=== PATIENT | female | born 1940 | race African-American/Black ===

== ENCOUNTER → 2016-11-01 | Outpatient (CLI) | payer MEDICARE ==
[~2016-11-01] MED LIST: ASPI325T4 PO; ATEN100T PO; CALC200T3 PO; CHOL100018 PO; FEBU40TA PO; HYDR-3240 PO; HYDR500C3 PO; LEVO100T5 PO; OMNIPAQUE 350 MG/ML, 100ML BOTTLE ONE; OXYC1TAB7 PO; PREG25CA PO; TIZA2TAB PO; TRIA1CAP PO
== END | disposition home or self-care (01) ==
LOC: CFH 09:05
PROVIDERS: ATTEND Internal Medicine Cardiovascular Disease
DX: I10 Essential (primary) hypertension (principal); N28.1 Cyst of kidney, acquired; R06.02 Shortness of breath
CPT/HCPCS: 71275; Q9967

== ENCOUNTER 2017-08-24 18:03 | Emergency (ER) | payer MEDICARE ==
[~2017-08-24] VITALS: Ht 167.6 cm; Wt 113.8 kg
[~2017-08-24 18:03] MED LIST changes: +ASPI325T17 PO; -ASPI325T4 PO; +CHOL100012 PO; -CHOL100018 PO; -OMNIPAQUE 350 MG/ML, 100ML BOTTLE ONE
[2017-08-24 18:06] VITALS: BP 125/73
[2017-08-24] MEDS ORDERED: DEXAMETHASONE 4 MG TABLET PO STA (18:51)
[2017-08-24] MEDS ORDERED: DEXAMETHASONE 4 MG TABLET ONE (18:56)
[2017-08-24] MEDS ORDERED: ALBUTEROL/IPRATROPIUM 2.5MG/0.5MG, 3 ML NPPB ONE (19:00)
[2017-08-24] MEDS ORDERED: ALBUTEROL/IPRATROPIUM 2.5MG/0.5MG, 3 ML ONE (19:15)
[2017-08-24] MEDS ORDERED: DEXAMETHASONE 4 MG TABLET PO ONE (19:30)
== END 2017-08-24 19:46 | disposition home or self-care (01) ==
LOC: ED 19:00
DX: J44.0 Chronic obstructive pulmonary disease with (acute) lower respiratory infection (principal); J20.9 Acute bronchitis, unspecified; J02.8 Acute pharyngitis due to other specified organisms; F17.200 Nicotine dependence, unspecified, uncomplicated
CPT/HCPCS: 71046; 87081; 87880; 94640; 99285; J7620

== ENCOUNTER → 2017-09-17 | Outpatient (CLI) | payer MEDICARE | END | disposition home or self-care (01) | LOC: CVU 09:14 | PROVIDERS: ATTEND Internal Medicine Cardiovascular Disease | DX: I08.3 Combined rheumatic disorders of mitral, aortic and tricuspid valves (principal); I10 Essential (primary) hypertension; J44.9 Chronic obstructive pulmonary disease, unspecified; Z87.891 Personal history of nicotine dependence | CPT/HCPCS: 93306 ==

== ENCOUNTER → 2017-10-23 | Outpatient (CLI) | payer MEDICARE ==
[~2017-10-23] MED LIST changes: +REGADENOSON 0.4 MG/5 ML SYRINGE ONE
== END | disposition home or self-care (01) ==
LOC: CFH 07:54
PROVIDERS: ATTEND Internal Medicine Cardiovascular Disease
DX: I25.10 Atherosclerotic heart disease of native coronary artery without angina pectoris (principal); I44.4 Left anterior fascicular block; I25.2 Old myocardial infarction
CPT/HCPCS: 78452; 93017; A9502; J2785

== ENCOUNTER 2018-03-31 10:24 | Inpatient (IN) | payer MEDICARE ==
[~2018-03-31] VITALS: Ht 167.6 cm; Wt 123.4 kg
[~2018-03-31 10:24] MED LIST changes: -REGADENOSON 0.4 MG/5 ML SYRINGE ONE
[2018-03-31] MEDS ORDERED: SODIUM CHLORIDE FLUSH 10ML SYR IVF ONE (11:30)
[2018-03-31] MEDS ORDERED: ALBUTEROL/IPRATROPIUM 2.5MG/0.5MG, 3 ML NPPB ONE (11:30)
[2018-03-31 12:11] LABS: INTERNATIONAL NORMALIZED RATIO 1.37 (0.93-1.1)
[2018-03-31 12:31] LABS: ALBUMIN 2.5 g/dL (3.4-5.0); ANION GAP 10 mmol/L (5-15); CALCIUM 7.5 mg/dL (8.5-10.1); CHLORIDE 96 mmol/L (98-107)
[2018-03-31 12:36] LABS: MEAN CORPUSCULAR HEMOGLOBIN 38.1 pg (27.0-34.8); MEAN CORPUSCULAR HGB CONC 31.9 g/dL (32.4-35.8); MEAN CORPUSCULAR VOLUME 119.5 fL (80-100); MEAN PLATELET VOLUME 7.3 fL (7.4-10.4); PLATELET COUNT 213 x10^3/uL (130-400); RED BLOOD COUNT 2.11 x10^6/uL (3.82-5.3); RED CELL DISTRIBUTION WIDTH 17.9 % (9.6-15.2)
[2018-03-31 12:36] LABS: ALANINE AMINOTRANSFERASE 133 U/L (12-78); ALKALINE PHOSPHATASE 241 U/L (45-117); BILIRUBIN,TOTAL 0.8 mg/dL (0.2-1.0); CREATININE 2.31 mg/dL (0.55-1.02); TOTAL PROTEIN 6.7 g/dL (6.4-8.2); TROPONIN I 0.047 ng/mL (0.000-0.045)
[2018-03-31 12:37] LABS: MD YES
[2018-03-31 12:43] LABS: LYMPH#(MANUAL) 4.48 x10^3/uL (1-3.4); LYMPHS% (MANUAL) 35 % (22-44); METAMYELOCYTES# (MANUAL) 0.13 x10^3/uL (0-0); METAMYELOCYTES% (MANUAL) 1 % (0-1); MONOS% (MANUAL) 18 % (2-9); SEG#(MANUAL) 1.15 x10^3/uL (1.8-6.8); SEGS% (MANUAL) 9 % (42-75)
[2018-03-31 12:45] LABS: NRBC % (MANUAL) 7 % (0-1); OTHER CELLS # (MANUAL) 4.74 x10^3/uL (0-0); OTHER CELLS % (MANUAL) 37 % (0-0)
[2018-03-31 12:47] LABS: ANISOCYTOSIS 1+
[2018-03-31 12:48] LABS: POLYCHROMASIA 1+
[2018-03-31 12:49] LABS: <PLATELET ESTIMATE> ADEQUATE; MICROCYTOSIS 1+
[2018-03-31 13:05] LABS: LARGE PLATELETS 1+
[2018-03-31 13:09] LABS: SCHISTOCYTES 1+
[2018-03-31 13:10] LABS: STOMATOCYTES 1+
[2018-03-31] MEDS: NICOTINE 7 MG/24 HR PATCH.TD24 TD SCH (16:00)
[2018-03-31] MEDS ORDERED: ENALAPRILAT 1.25 MG/ML, 2ML IVPush PRN (16:00)
[2018-03-31] MEDS ORDERED: FUROSEMIDE 20 MG/2 ML IV ONE (16:14)
[2018-03-31] MEDS ORDERED: ALBUTEROL SULFATE 2.5 MG/3 ML NPPB PRN (17:00)
[2018-03-31 17:03] VITALS: BP 132/60
[2018-03-31 17:55] LABS: TROPONIN I 0.053 ng/mL (0.000-0.045)
[2018-03-31] MEDS: ACETAMINOPHEN 325 MG TABLET PO PRN (18:43)
[2018-03-31 18:49] VITALS: BP 118/64
[2018-03-31 18:54] VITALS: BP 107/66
[2018-03-31 19:00] VITALS: BP 126/79
[2018-03-31] MEDS: ALBUTEROL SULFATE 2.5 MG/3 ML NPPB SCH ×2 (19:05→21:00)
[2018-03-31 22:40] LABS: TROPONIN I 0.063 ng/mL (0.000-0.045)
[2018-04-01 04:15] VITALS: BP 106/65
[2018-04-01] MEDS: ALBUTEROL SULFATE 2.5 MG/3 ML NPPB SCH ×4 (04:31→20:07)
[2018-04-01 05:33] LABS: ALANINE AMINOTRANSFERASE 109 U/L (12-78); ALBUMIN 2.2 g/dL (3.4-5.0); ANION GAP 6 mmol/L (5-15); CALCIUM 7.6 mg/dL (8.5-10.1); CHLORIDE 98 mmol/L (98-107)
[2018-04-01 05:34] LABS: MEAN CORPUSCULAR HEMOGLOBIN 39.5 pg (27.0-34.8); MEAN CORPUSCULAR HGB CONC 32.7 g/dL (32.4-35.8); MEAN CORPUSCULAR VOLUME 120.8 fL (80-100); MEAN PLATELET VOLUME 7.2 fL (7.4-10.4); PLATELET COUNT 191 x10^3/uL (130-400); RED BLOOD COUNT 2.02 x10^6/uL (3.82-5.3); RED CELL DISTRIBUTION WIDTH 17.6 % (9.6-15.2)
[2018-04-01 05:35] LABS: ALKALINE PHOSPHATASE 222 U/L (45-117); BILIRUBIN,TOTAL 0.7 mg/dL (0.2-1.0); TOTAL PROTEIN 6.1 g/dL (6.4-8.2)
[2018-04-01 05:53] LABS: MD YES
[2018-04-01 05:58] LABS: LYMPH#(MANUAL) 6.07 x10^3/uL (1-3.4); LYMPHS% (MANUAL) 46 % (22-44); MONOS#(MANUAL) 1.06 x10^3/uL (0.3-2.7); MONOS% (MANUAL) 8 % (2-9); SEG#(MANUAL) 1.32 x10^3/uL (1.8-6.8); SEGS% (MANUAL) 10 % (42-75)
[2018-04-01 05:59] LABS: <PLATELET ESTIMATE> ADEQUATE; ANISOCYTOSIS 1+; LARGE PLATELETS 1+; NRBC % (MANUAL) 16 % (0-1); OTHER CELLS # (MANUAL) 4.75 x10^3/uL (0-0); OTHER CELLS % (MANUAL) 36 % (0-0); POLYCHROMASIA 1+
[2018-04-01 06:02] LABS: SMUDGE CELLS 1+
[2018-04-01] MEDS ORDERED: POTASSIUM CHLORIDE 20 MEQ TAB.ER.PRT PO ONE (07:00)
[2018-04-01 07:28] VITALS: BP 108/60
[2018-04-01] MEDS ORDERED: FUROSEMIDE 20 MG/2 ML IV SCH (09:00)
[2018-04-01] MEDS: POTASSIUM CHLORIDE 20 MEQ TAB.ER.PRT PO SCH (09:01)
[2018-04-01] MEDS: FEBUXOSTAT 40 MG TABLET PO SCH (09:01)
[2018-04-01] MEDS: LEVOTHYROXINE 100 MCG TABLET PO SCH (09:02)
[2018-04-01] MEDS: CHOLECALCIFEROL 1,000 UNIT TABLET PO SCH (09:02)
[2018-04-01 12:41] VITALS: BP 116/71
[2018-04-01 14:23] LABS: OCCULT BLOOD POSITIVE (NEGATIVE)
[2018-04-01 14:24] LABS: FOLATE LEVEL 5.7 ng/mL (3.1-17.5); THYROID STIMULATING HORMONE 0.767 mIU/L (0.358-3.740)
[2018-04-01 14:26] LABS: MD YES; MEAN CORPUSCULAR HEMOGLOBIN 39.6 pg (27.0-34.8); MEAN CORPUSCULAR HGB CONC 32.8 g/dL (32.4-35.8); MEAN CORPUSCULAR VOLUME 120.4 fL (80-100); MEAN PLATELET VOLUME 6.6 fL (7.4-10.4); PLATELET COUNT 180 x10^3/uL (130-400); RED BLOOD COUNT 2.05 x10^6/uL (3.82-5.3); RED CELL DISTRIBUTION WIDTH 17.6 % (9.6-15.2)
[2018-04-01 15:23] LABS: ANISOCYTOSIS 1+; BAND#(MANUAL) 0.14 x10^3/uL; BANDS%(MANUAL) 1 % (0-7); BASOS#(MANUAL) 0.14 x10^3/uL (0-0.1); BASOS% (MANUAL) 1 % (0-1); LYMPHS% (MANUAL) 21 % (22-44); METAMYELOCYTES# (MANUAL) 0.28 x10^3/uL (0-0); METAMYELOCYTES% (MANUAL) 2 % (0-1); MONOS% (MANUAL) 8 % (2-9); NRBC % (MANUAL) 30 % (0-1); OTHER CELLS # (MANUAL) 8.28 x10^3/uL (0-0); OTHER CELLS % (MANUAL) 60 % (0-0); POLYCHROMASIA 1+; SEG#(MANUAL) 0.97 x10^3/uL (1.8-6.8); SEGS% (MANUAL) 7 % (42-75)
[2018-04-01 15:24] LABS: BASOPHILLIC STIPPLING 1+; OVALOCYTES 1+
[2018-04-01 15:25] LABS: <PLATELET ESTIMATE> ADEQUATE
[2018-04-01 15:26] LABS: LARGE PLATELETS 1+
[2018-04-01] MEDS: NICOTINE 7 MG/24 HR PATCH.TD24 TD SCH (16:00)
[2018-04-01 19:58] VITALS: BP 116/70
[2018-04-01 21:00] VITALS: BP 114/66
[2018-04-01] MEDS: ACETAMINOPHEN 325 MG TABLET PO PRN (21:11)
[2018-04-01 22:09] LABS: ALANINE AMINOTRANSFERASE 87 U/L (12-78); ALBUMIN 2.3 g/dL (3.4-5.0); ANION GAP 8 mmol/L (5-15); CALCIUM 7.6 mg/dL (8.5-10.1); CHLORIDE 98 mmol/L (98-107); CREATININE 2.11 mg/dL (0.55-1.02)
[2018-04-01 22:11] LABS: ALKALINE PHOSPHATASE 202 U/L (45-117); BILIRUBIN,TOTAL 0.8 mg/dL (0.2-1.0); TOTAL PROTEIN 6.1 g/dL (6.4-8.2)
[2018-04-02 02:00] VITALS: BP 108/69
[2018-04-02] MEDS ORDERED: POTASSIUM CHLORIDE 20 MEQ TAB.ER.PRT PO ONE (06:00)
[2018-04-02 07:00] VITALS: BP 115/73
[2018-04-02] MEDS: ALBUTEROL SULFATE 2.5 MG/3 ML NPPB SCH ×3 (07:50→21:28)
[2018-04-02] MEDS: POTASSIUM CHLORIDE 20 MEQ TAB.ER.PRT PO SCH (08:00)
[2018-04-02] MEDS: FEBUXOSTAT 40 MG TABLET PO SCH (08:52)
[2018-04-02] MEDS: LEVOTHYROXINE 100 MCG TABLET PO SCH (08:52)
[2018-04-02] MEDS: CHOLECALCIFEROL 1,000 UNIT TABLET PO SCH (08:52)
[2018-04-02 12:33] VITALS: BP 130/77
[2018-04-02] MEDS: ENOXAPARIN 30 MG/0.3 ML SQ SCH (13:06)
[2018-04-02] MEDS: NICOTINE 7 MG/24 HR PATCH.TD24 TD SCH (16:00)
[2018-04-02 17:23] LABS: ANION GAP 6 mmol/L (5-15); CALCIUM 8.3 mg/dL (8.5-10.1); CHLORIDE 101 mmol/L (98-107); CREATININE 1.72 mg/dL (0.55-1.02)
[2018-04-02 17:46] LABS: MD YES
[2018-04-02 17:47] LABS: MEAN CORPUSCULAR HEMOGLOBIN 39.1 pg (27.0-34.8); MEAN CORPUSCULAR HGB CONC 32.8 g/dL (32.4-35.8); MEAN CORPUSCULAR VOLUME 119.2 fL (80-100); MEAN PLATELET VOLUME 7.4 fL (7.4-10.4); PLATELET COUNT 119 x10^3/uL (130-400); RED BLOOD COUNT 1.93 x10^6/uL (3.82-5.3)
[2018-04-02 17:54] LABS: RED CELL DISTRIBUTION WIDTH 18.3 % (9.6-15.2)
[2018-04-02 18:00] LABS: BANDS%(MANUAL) 2 % (0-7); LYMPH#(MANUAL) 4.85 x10^3/uL (1-3.4); LYMPHS% (MANUAL) 24 % (22-44); MONOS#(MANUAL) 1.82 x10^3/uL (0.3-2.7); MONOS% (MANUAL) 9 % (2-9); NRBC % (MANUAL) 9 % (0-1); OTHER CELLS # (MANUAL) 10.91 x10^3/uL (0-0); OTHER CELLS % (MANUAL) 54 % (0-0); SEG#(MANUAL) 2.22 x10^3/uL (1.8-6.8); SEGS% (MANUAL) 11 % (42-75)
[2018-04-02 18:01] LABS: <PLATELET ESTIMATE> ADEQUATE; ANISOCYTOSIS 1+; LARGE PLATELETS 1+; POLYCHROMASIA 1+
[2018-04-02 19:51] VITALS: BP 148/78
[2018-04-03] VITALS (10 sets, daily range): BP systolic 95–142; BP diastolic 47–82
[2018-04-03] MEDS ORDERED: POTASSIUM CHLORIDE 40 MEQ in SODIUM CHLORIDE 0.9% 500 ML IV ONE ×2 (08:00→17:00)
[2018-04-03] MEDS: FLUTICASONE/VILANTEROL 200-25MCG/INH INH SCH (09:00)
[2018-04-03] MEDS: FEBUXOSTAT 40 MG TABLET PO SCH (09:10)
[2018-04-03] MEDS: CHOLECALCIFEROL 1,000 UNIT TABLET PO SCH (09:10)
[2018-04-03] MEDS: LEVOTHYROXINE 100 MCG TABLET PO SCH (09:10)
[2018-04-03] MEDS: ALBUTEROL SULFATE 2.5 MG/3 ML NPPB SCH ×3 (09:17→20:03)
[2018-04-03 11:01] LABS: MICROSCOPIC INDICATED
[2018-04-03 11:57] LABS: CULTURE INDICATED? YES
[2018-04-03] MEDS: ENOXAPARIN 30 MG/0.3 ML SQ SCH (13:57)
[2018-04-03] MEDS: NICOTINE 7 MG/24 HR PATCH.TD24 TD SCH (19:47)
[2018-04-04 02:04] VITALS: BP 144/77
[2018-04-04 05:14] LABS: ANION GAP 6 mmol/L (5-15); CALCIUM 8.2 mg/dL (8.5-10.1); CHLORIDE 106 mmol/L (98-107); CREATININE 1.29 mg/dL (0.55-1.02)
[2018-04-04 06:45] LABS: MD YES; MEAN CORPUSCULAR HEMOGLOBIN 35.7 pg (27.0-34.8); MEAN CORPUSCULAR HGB CONC 33.1 g/dL (32.4-35.8); MEAN CORPUSCULAR VOLUME 107.9 fL (80-100); MEAN PLATELET VOLUME 8.6 fL (7.4-10.4); PLATELET COUNT 82 x10^3/uL (130-400); RED BLOOD COUNT 2.53 x10^6/uL (3.82-5.3); RED CELL DISTRIBUTION WIDTH 29.1 % (9.6-15.2)
[2018-04-04 06:50] LABS: LYMPH#(MANUAL) 6.72 x10^3/uL (1-3.4); LYMPHS% (MANUAL) 28 % (22-44); NRBC % (MANUAL) 8 % (0-1); SEG#(MANUAL) 0.96 x10^3/uL (1.8-6.8); SEGS% (MANUAL) 4 % (42-75)
[2018-04-04 06:52] LABS: OTHER CELLS % (MANUAL) 68 % (0-0)
[2018-04-04 06:53] LABS: ANISOCYTOSIS 2+
[2018-04-04 07:00] LABS: <PLATELET ESTIMATE> DECREASED; OVALOCYTES 1+
[2018-04-04 07:01] LABS: <PLT MORPHOLOGY> NORMAL PLT MORPH; LARGE PLATELETS 1+
[2018-04-04 07:43] VITALS: BP 153/82
[2018-04-04 08:20] LABS: ABSOLUTE RETICS # 0.034 x10^6/uL (0.5-2.5); RETICULOCYTE COUNT % 1.33 % (0.5-1.5)
[2018-04-04 08:24] LABS: PLATELET (DIC) 83 x10^3/uL (130-400)
[2018-04-04 08:25] LABS: RED BLOOD COUNT 2.52 x10^6/uL (3.82-5.3)
[2018-04-04 08:37] LABS: FIBRINOGEN 166 mg/dL (200-340); PROTIME 11.9 Seconds (9.6-11.5); PTT 30 Seconds (25-31)
[2018-04-04 08:48] LABS: D-DIMER (DIC) > 35.20 ug/mlFEU (0.00-0.52)
[2018-04-04] MEDS: LEVOTHYROXINE 100 MCG TABLET PO SCH (09:14)
[2018-04-04] MEDS: FEBUXOSTAT 40 MG TABLET PO SCH (09:14)
[2018-04-04] MEDS: CHOLECALCIFEROL 1,000 UNIT TABLET PO SCH (09:14)
[2018-04-04] MEDS: FLUTICASONE/VILANTEROL 200-25MCG/INH INH SCH (09:30)
[2018-04-04] MEDS ORDERED: LIDOCAINE-MPF 2%, 2ML ONE (10:15)
[2018-04-04] MEDS ORDERED: FENTANYL PF 100 MCG/2ML ONE (10:16)
[2018-04-04] MEDS ORDERED: FLUMAZENIL 0.1 MG/1 ML, 5ML ONE (10:17)
[2018-04-04] MEDS ORDERED: NALOXONE 1 MG/ML, 2ML ONE (10:17)
[2018-04-04] MEDS ORDERED: MIDAZOLAM 1 MG/ML, 5ML ONE (10:17)
[2018-04-04 12:54] VITALS: BP 159/84
[2018-04-04] MEDS: NICOTINE 7 MG/24 HR PATCH.TD24 TD SCH (16:00)
[2018-04-04 16:30] LABS: PLATELET (DIC) 83 x10^3/uL (130-400)
[2018-04-04 16:57] LABS: FIBRINOGEN 181 mg/dL (200-340); PTT 29 Seconds (25-31)
[2018-04-04 16:59] LABS: D-DIMER (DIC) > 35.20 ug/mlFEU (0.00-0.52)
[2018-04-04 19:31] VITALS: BP 135/78
[2018-04-05 00:03] VITALS: BP 147/84
[2018-04-05 07:19] VITALS: BP 126/79
[2018-04-05] MEDS: FEBUXOSTAT 40 MG TABLET PO SCH (08:29)
[2018-04-05] MEDS: CHOLECALCIFEROL 1,000 UNIT TABLET PO SCH (08:29)
[2018-04-05] MEDS: LEVOTHYROXINE 100 MCG TABLET PO SCH (08:30)
[2018-04-05] MEDS: FLUTICASONE/VILANTEROL 200-25MCG/INH INH SCH (08:31)
[2018-04-05 08:52] LABS: ANION GAP 5 mmol/L (5-15); CALCIUM 8.5 mg/dL (8.5-10.1); CHLORIDE 107 mmol/L (98-107)
[2018-04-05] MEDS ORDERED: COLCHICINE 0.6 MG TABLET PO SCH ×2 (09:00)
[2018-04-05] MEDS ORDERED: LIDOCAINE-MPF 2%, 2ML ONE (10:41)
[2018-04-05 13:56] VITALS: BP 130/84
[2018-04-05 15:26] LABS: ALBUMIN 2.2 g/dL (3.4-5.0); ANION GAP 6 mmol/L (5-15); CALCIUM 8.3 mg/dL (8.5-10.1); CHLORIDE 107 mmol/L (98-107)
[2018-04-05 15:32] LABS: MEAN CORPUSCULAR HEMOGLOBIN 34.3 pg (27.0-34.8); MEAN CORPUSCULAR HGB CONC 32.1 g/dL (32.4-35.8); MEAN CORPUSCULAR VOLUME 106.9 fL (80-100); MEAN PLATELET VOLUME 8.4 fL (7.4-10.4); PLATELET COUNT 80 x10^3/uL (130-400); RED BLOOD COUNT 2.39 x10^6/uL (3.82-5.3)
[2018-04-05 15:37] LABS: ALANINE AMINOTRANSFERASE 37 U/L (12-78); ALKALINE PHOSPHATASE 135 U/L (45-117); BILIRUBIN,TOTAL 0.4 mg/dL (0.2-1.0); TOTAL PROTEIN 6.2 g/dL (6.4-8.2)
[2018-04-05 16:39] LABS: MD YES
[2018-04-05 16:46] LABS: LYMPH#(MANUAL) 3.27 x10^3/uL (1-3.4); LYMPHS% (MANUAL) 15 % (22-44); MONOS#(MANUAL) 0.44 x10^3/uL (0.3-2.7); MONOS% (MANUAL) 2 % (2-9); SEG#(MANUAL) 1.74 x10^3/uL (1.8-6.8); SEGS% (MANUAL) 8 % (42-75)
[2018-04-05 16:47] LABS: NRBC % (MANUAL) 6 % (0-1); OTHER CELLS # (MANUAL) 16.35 x10^3/uL (0-0)
[2018-04-05 16:48] LABS: <PLATELET ESTIMATE> DECREASED; ANISOCYTOSIS 2+; LARGE PLATELETS 1+
[2018-04-05 16:49] LABS: HEMOGRAM NOTE RECHECKED; RED CELL DISTRIBUTION WIDTH 28.3 % (9.6-15.2)
[2018-04-05 16:52] LABS: OTHER CELLS % (MANUAL) 75 % (0-0)
[2018-04-05] MEDS: NICOTINE 7 MG/24 HR PATCH.TD24 TD SCH (17:04)
[2018-04-05 18:47] VITALS: BP 166/84
[2018-04-06 00:28] VITALS: BP 136/72
[2018-04-06 06:14] LABS: ALBUMIN 2.3 g/dL (3.4-5.0); ANION GAP 4 mmol/L (5-15); CALCIUM 7.7 mg/dL (8.5-10.1); CHLORIDE 107 mmol/L (98-107)
[2018-04-06 06:18] LABS: ALANINE AMINOTRANSFERASE 37 U/L (12-78); ALKALINE PHOSPHATASE 129 U/L (45-117); BILIRUBIN,TOTAL 0.6 mg/dL (0.2-1.0); CREATININE 1.13 mg/dL (0.55-1.02); TOTAL PROTEIN 6.2 g/dL (6.4-8.2)
[2018-04-06 06:23] LABS: MEAN CORPUSCULAR HEMOGLOBIN 35.4 pg (27.0-34.8); MEAN CORPUSCULAR VOLUME 107.1 fL (80-100); MEAN PLATELET VOLUME 8.7 fL (7.4-10.4); PLATELET COUNT 86 x10^3/uL (130-400); RED BLOOD COUNT 2.32 x10^6/uL (3.82-5.3); RED CELL DISTRIBUTION WIDTH 27.9 % (9.6-15.2)
[2018-04-06 06:53] VITALS: BP 146/67
[2018-04-06 07:46] LABS: MD YES
[2018-04-06 07:52] LABS: EOS#(MANUAL) 0.24 x10^3/uL (0.0-0.4); EOS% (MANUAL) 1 % (1-7); LYMPH#(MANUAL) 4.74 x10^3/uL (1-3.4); LYMPHS% (MANUAL) 20 % (22-44); MONOS#(MANUAL) 0.24 x10^3/uL (0.3-2.7); MONOS% (MANUAL) 1 % (2-9); NRBC % (MANUAL) 8 % (0-1); OTHER CELLS # (MANUAL) 18.25 x10^3/uL (0-0); REACTIVE LYMPHS # (MANUAL) 0.24 x10^3/uL (0-0); REACTIVE LYMPHS % (MANUAL) 1 % (0-0)
[2018-04-06 07:53] LABS: OTHER CELLS % (MANUAL) 77 % (0-0)
[2018-04-06 07:54] LABS: ANISOCYTOSIS 2+; POLYCHROMASIA 1+
[2018-04-06 07:55] LABS: <PLATELET ESTIMATE> DECREASED; <PLT MORPHOLOGY> NORMAL PLT MORPH
[2018-04-06] MEDS: CHOLECALCIFEROL 1,000 UNIT TABLET PO SCH (11:51)
[2018-04-06] MEDS: ALLOPURINOL 100 MG TABLET PO SCH (11:51)
[2018-04-06] MEDS: LEVOTHYROXINE 100 MCG TABLET PO SCH (11:52)
[2018-04-06 13:32] VITALS: BP 157/93
[2018-04-06] MEDS: NICOTINE 7 MG/24 HR PATCH.TD24 TD SCH (13:47)
[2018-04-06] MEDS: FLUTICASONE/VILANTEROL 200-25MCG/INH INH SCH (14:27)
[2018-04-06] MEDS ORDERED: FUROSEMIDE 20 MG/2 ML IV ONE (14:30)
[2018-04-06] MEDS: CEPHALEXIN 250 MG/5 ML, ORAL SUSP PO SCH ×2 (17:22→21:14)
[2018-04-06 19:45] VITALS: BP 144/79
[2018-04-07 02:50] VITALS: BP 142/77
[2018-04-07] MEDS: CEPHALEXIN 250 MG/5 ML, ORAL SUSP PO SCH ×4 (05:38→20:14)
[2018-04-07 06:22] LABS: CHLORIDE 105 mmol/L (98-107)
[2018-04-07 06:23] LABS: MEAN CORPUSCULAR HEMOGLOBIN 35.6 pg (27.0-34.8); MEAN CORPUSCULAR HGB CONC 33.2 g/dL (32.4-35.8); MEAN CORPUSCULAR VOLUME 107.1 fL (80-100); MEAN PLATELET VOLUME 8.4 fL (7.4-10.4); PLATELET COUNT 71 x10^3/uL (130-400); RED BLOOD COUNT 2.23 x10^6/uL (3.82-5.3); RED CELL DISTRIBUTION WIDTH 27.7 % (9.6-15.2)
[2018-04-07 06:38] LABS: ALANINE AMINOTRANSFERASE 35 U/L (12-78); ALBUMIN 2.4 g/dL (3.4-5.0); ALKALINE PHOSPHATASE 119 U/L (45-117); ANION GAP 7 mmol/L (5-15); BILIRUBIN,TOTAL 0.5 mg/dL (0.2-1.0); CALCIUM 8.1 mg/dL (8.5-10.1); TOTAL PROTEIN 6.1 g/dL (6.4-8.2)
[2018-04-07 07:25] LABS: MD YES
[2018-04-07 07:27] LABS: LYMPH#(MANUAL) 4.25 x10^3/uL (1-3.4); LYMPHS% (MANUAL) 17 % (22-44); MONOS% (MANUAL) 2 % (2-9); NRBC % (MANUAL) 8 % (0-1); OTHER CELLS # (MANUAL) 20.25 x10^3/uL (0-0)
[2018-04-07 07:28] LABS: ANISOCYTOSIS 2+; OTHER CELLS % (MANUAL) 81 % (0-0)
[2018-04-07 07:29] LABS: OVALOCYTES 1+; POLYCHROMASIA 1+
[2018-04-07 07:30] LABS: <PLATELET ESTIMATE> DECREASED; <PLT MORPHOLOGY> NORMAL PLT MORPH
[2018-04-07 09:02] VITALS: BP 131/69
[2018-04-07] MEDS: LEVOTHYROXINE 100 MCG TABLET PO SCH (09:23)
[2018-04-07] MEDS: CHOLECALCIFEROL 1,000 UNIT TABLET PO SCH (09:23)
[2018-04-07] MEDS: ALLOPURINOL 100 MG TABLET PO SCH (09:23)
[2018-04-07] MEDS: FLUTICASONE/VILANTEROL 200-25MCG/INH INH SCH (09:23)
[2018-04-07] MEDS ORDERED: ALBUTEROL SULFATE 2.5 MG/3 ML NPPB PRN (09:30)
[2018-04-07] MEDS: ALBUTEROL SULFATE 2.5 MG/3 ML NPPB SCH ×3 (09:53→19:06)
[2018-04-07] MEDS: FAMOTIDINE 20 MG/2 ML IVPush SCH (10:18)
[2018-04-07] MEDS: ACETAMINOPHEN 325 MG TABLET PO SCH (10:18)
[2018-04-07] MEDS ORDERED: SODIUM CHLORIDE 0.9% IVPush SCH (10:30)
[2018-04-07] MEDS ORDERED: AZACITIDINE IVPush SCH (10:30)
[2018-04-07] MEDS: ONDANSETRON 8 MG in SODIUM CHLORIDE 0.9% 50 ML IVPB SCH (10:50)
[2018-04-07] MEDS: DIPHENHYDRAMINE 50 MG/ML, 1ML IVPush SCH (10:57)
[2018-04-07 13:55] VITALS: BP 125/73
[2018-04-07] MEDS: NICOTINE 7 MG/24 HR PATCH.TD24 TD SCH (15:00)
[2018-04-07] MEDS ORDERED: ARGATROBAN/NACL 50 MG/50 ML 50 ML IV SCH ×2 (16:00→16:05)
[2018-04-07] MEDS ORDERED: FONDAPARINUX 2.5 MG/0.5 ML SQ SCH (17:00)
[2018-04-07 19:47] VITALS: BP 155/73
[2018-04-08 03:46] VITALS: BP 111/62
[2018-04-08] MEDS: CEPHALEXIN 250 MG/5 ML, ORAL SUSP PO SCH ×4 (05:50→20:58)
[2018-04-08] MEDS: LEVOTHYROXINE 100 MCG TABLET PO SCH ×2 (05:50→09:54)
[2018-04-08 06:08] LABS: MEAN CORPUSCULAR HEMOGLOBIN 35.4 pg (27.0-34.8); MEAN CORPUSCULAR HGB CONC 33.4 g/dL (32.4-35.8); MEAN CORPUSCULAR VOLUME 105.9 fL (80-100); RED CELL DISTRIBUTION WIDTH 28.2 % (9.6-15.2)
[2018-04-08 06:13] LABS: CHLORIDE 106 mmol/L (98-107)
[2018-04-08 06:19] LABS: ALANINE AMINOTRANSFERASE 33 U/L (12-78); ALBUMIN 2.3 g/dL (3.4-5.0); ALKALINE PHOSPHATASE 109 U/L (45-117); ANION GAP 6 mmol/L (5-15); BILIRUBIN,TOTAL 0.4 mg/dL (0.2-1.0); CALCIUM 8.4 mg/dL (8.5-10.1); CREATININE 1.47 mg/dL (0.55-1.02); TOTAL PROTEIN 6.3 g/dL (6.4-8.2)
[2018-04-08 06:45] LABS: MD YES; MEAN PLATELET VOLUME 8.5 fL (7.4-10.4); PLATELET COUNT 84 x10^3/uL (130-400)
[2018-04-08 06:47] LABS: LYMPH#(MANUAL) 4.08 x10^3/uL (1-3.4); LYMPHS% (MANUAL) 20 % (22-44); MONOS#(MANUAL) 0.61 x10^3/uL (0.3-2.7); MONOS% (MANUAL) 3 % (2-9); NRBC % (MANUAL) 5 % (0-1)
[2018-04-08 06:48] LABS: OTHER CELLS % (MANUAL) 75 % (0-0); SEG#(MANUAL) 0.41 x10^3/uL (1.8-6.8); SEGS% (MANUAL) 2 % (42-75)
[2018-04-08 06:49] LABS: ANISOCYTOSIS 2+; POLYCHROMASIA 1+
[2018-04-08 06:50] LABS: <PLATELET ESTIMATE> DECREASED; <PLT MORPHOLOGY> NORMAL PLT MORPH
[2018-04-08] MEDS: ALBUTEROL SULFATE 2.5 MG/3 ML NPPB SCH ×4 (07:00→20:00)
[2018-04-08 07:42] VITALS: BP 137/75
[2018-04-08] MEDS: ALLOPURINOL 100 MG TABLET PO SCH (09:54)
[2018-04-08] MEDS: CHOLECALCIFEROL 1,000 UNIT TABLET PO SCH (09:54)
[2018-04-08] MEDS: FLUTICASONE/VILANTEROL 200-25MCG/INH INH SCH (09:54)
[2018-04-08] MEDS: FAMOTIDINE 20 MG/2 ML IVPush SCH (11:04)
[2018-04-08] MEDS: ONDANSETRON 8 MG in SODIUM CHLORIDE 0.9% 50 ML IVPB SCH (11:05)
[2018-04-08] MEDS: ACETAMINOPHEN 325 MG TABLET PO SCH (11:05)
[2018-04-08] MEDS: DIPHENHYDRAMINE 50 MG/ML, 1ML IVPush SCH (11:05)
[2018-04-08] MEDS: AZACITIDINE IV SCH (12:42)
[2018-04-08] MEDS: SODIUM CHLORIDE 0.9% IV SCH (12:42)
[2018-04-08 13:38] VITALS: BP 131/74
[2018-04-08] MEDS: NICOTINE 7 MG/24 HR PATCH.TD24 TD SCH (14:41)
[2018-04-08 17:23] LABS: ANION GAP 5 mmol/L (5-15); CALCIUM 8.2 mg/dL (8.5-10.1); CHLORIDE 106 mmol/L (98-107); CREATININE 1.36 mg/dL (0.55-1.02)
[2018-04-08] MEDS: HEPARIN 5,000 UNITS/ML, 1ML SQ SCH (17:29)
[2018-04-08 18:15] LABS: MICROSCOPIC NOT IND
[2018-04-08 18:20] LABS: CHLORIDE,URINE RANDOM 73 mmol/L; POTASSIUM,URINE RANDOM 35 mmol/L; SODIUM,URINE RANDOM 71 mmol/L
[2018-04-08 18:22] LABS: CULTURE INDICATED? NO
[2018-04-08 19:37] VITALS: BP 126/68
[2018-04-08] MEDS: SODIUM CHLORIDE 0.9% 1,000 ML IV SCH (21:01)
[2018-04-09] VITALS (7 sets, daily range): BP systolic 115–159; BP diastolic 66–84
[2018-04-09] MEDS: HEPARIN 5,000 UNITS/ML, 1ML SQ SCH ×3 (00:26→17:35)
[2018-04-09] MEDS: ALBUTEROL SULFATE 2.5 MG/3 ML NPPB SCH ×5 (01:57→19:41)
[2018-04-09] MEDS: SODIUM CHLORIDE 0.9% 1,000 ML IV SCH (04:09)
[2018-04-09] MEDS: LEVOTHYROXINE 100 MCG TABLET PO SCH (05:46)
[2018-04-09] MEDS: CEPHALEXIN 250 MG/5 ML, ORAL SUSP PO SCH ×4 (05:46→20:22)
[2018-04-09 06:09] LABS: MEAN CORPUSCULAR HEMOGLOBIN 34.9 pg (27.0-34.8); MEAN CORPUSCULAR HGB CONC 32.6 g/dL (32.4-35.8); MEAN CORPUSCULAR VOLUME 107.1 fL (80-100); MEAN PLATELET VOLUME 7.9 fL (7.4-10.4); PLATELET COUNT 81 x10^3/uL (130-400); RED BLOOD COUNT 1.99 x10^6/uL (3.82-5.3); RED CELL DISTRIBUTION WIDTH 27.4 % (9.6-15.2)
[2018-04-09 06:10] LABS: ALANINE AMINOTRANSFERASE 26 U/L (12-78); ALBUMIN 2.3 g/dL (3.4-5.0); ANION GAP 7 mmol/L (5-15); CALCIUM 7.9 mg/dL (8.5-10.1); CHLORIDE 105 mmol/L (98-107)
[2018-04-09 06:12] LABS: ALKALINE PHOSPHATASE 100 U/L (45-117); BILIRUBIN,TOTAL 0.5 mg/dL (0.2-1.0); TOTAL PROTEIN 6.2 g/dL (6.4-8.2)
[2018-04-09 06:38] LABS: MD YES
[2018-04-09 06:59] LABS: LYMPHS% (MANUAL) 20 % (22-44); MONOS#(MANUAL) 1.54 x10^3/uL (0.3-2.7); MONOS% (MANUAL) 7 % (2-9); SEG#(MANUAL) 1.76 x10^3/uL (1.8-6.8); SEGS% (MANUAL) 8 % (42-75)
[2018-04-09 07:01] LABS: <PLATELET ESTIMATE> DECREASED; ANISOCYTOSIS 2+; OTHER CELLS % (MANUAL) 65 % (0-0); POLYCHROMASIA 1+
[2018-04-09 07:02] LABS: <PLT MORPHOLOGY> NORMAL PLT MORPH
[2018-04-09] MEDS: ALLOPURINOL 100 MG TABLET PO SCH (10:15)
[2018-04-09] MEDS: FLUTICASONE/VILANTEROL 200-25MCG/INH INH SCH (10:15)
[2018-04-09] MEDS: CHOLECALCIFEROL 1,000 UNIT TABLET PO SCH (10:15)
[2018-04-09] MEDS: ACETAMINOPHEN 325 MG TABLET PO SCH (11:26)
[2018-04-09] MEDS: FAMOTIDINE 20 MG/2 ML IVPush SCH (11:26)
[2018-04-09] MEDS: ONDANSETRON 8 MG in SODIUM CHLORIDE 0.9% 50 ML IVPB SCH (11:26)
[2018-04-09] MEDS: DIPHENHYDRAMINE 50 MG/ML, 1ML IVPush SCH (11:26)
[2018-04-09] MEDS: SODIUM CHLORIDE 0.9% IV SCH (12:49)
[2018-04-09] MEDS: AZACITIDINE IV SCH (12:49)
[2018-04-09] MEDS ORDERED: FUROSEMIDE 20 MG/2 ML IV ONE (13:30)
[2018-04-09] MEDS: NICOTINE 7 MG/24 HR PATCH.TD24 TD SCH (16:00)
[2018-04-09] MEDS: OXYcodone/APAP 5/325MG TABLET PO PRN ×2 (22:32→23:57)
[2018-04-10] MEDS: HEPARIN 5,000 UNITS/ML, 1ML SQ SCH ×3 (01:37→17:33)
[2018-04-10 01:47] VITALS: BP 136/84
[2018-04-10] MEDS: CEPHALEXIN 250 MG/5 ML, ORAL SUSP PO SCH ×2 (05:33→13:01)
[2018-04-10] MEDS: LEVOTHYROXINE 100 MCG TABLET PO SCH (05:34)
[2018-04-10 06:24] LABS: CHLORIDE 103 mmol/L (98-107)
[2018-04-10 06:30] LABS: MEAN CORPUSCULAR HEMOGLOBIN 34.8 pg (27.0-34.8); MEAN CORPUSCULAR VOLUME 102.5 fL (80-100); MEAN PLATELET VOLUME 7.8 fL (7.4-10.4); PLATELET COUNT 91 x10^3/uL (130-400); RED BLOOD COUNT 2.26 x10^6/uL (3.82-5.3); RED CELL DISTRIBUTION WIDTH 29.1 % (9.6-15.2)
[2018-04-10 06:38] LABS: ALANINE AMINOTRANSFERASE 26 U/L (12-78); ALBUMIN 2.3 g/dL (3.4-5.0); ALKALINE PHOSPHATASE 101 U/L (45-117); ANION GAP 8 mmol/L (5-15); BILIRUBIN,TOTAL 0.5 mg/dL (0.2-1.0); CALCIUM 8.1 mg/dL (8.5-10.1); CREATININE 1.52 mg/dL (0.55-1.02); TOTAL PROTEIN 6.4 g/dL (6.4-8.2)
[2018-04-10] MEDS: ALBUTEROL SULFATE 2.5 MG/3 ML NPPB SCH (06:40)
[2018-04-10 07:23] LABS: MD YES
[2018-04-10 07:31] LABS: BAND#(MANUAL) 0.21 x10^3/uL; BANDS%(MANUAL) 1 % (0-7); SEG#(MANUAL) 1.46 x10^3/uL (1.8-6.8); SEGS% (MANUAL) 7 % (42-75)
[2018-04-10 07:33] LABS: LYMPHS% (MANUAL) 22 % (22-44); MONOS#(MANUAL) 1.67 x10^3/uL (0.3-2.7); MONOS% (MANUAL) 8 % (2-9); NRBC % (MANUAL) 7 % (0-1)
[2018-04-10 07:34] LABS: OTHER CELLS # (MANUAL) 12.96 x10^3/uL (0-0); OTHER CELLS % (MANUAL) 62 % (0-0)
[2018-04-10 07:36] LABS: ANISOCYTOSIS 2+; POLYCHROMASIA 1+
[2018-04-10 07:37] LABS: <PLATELET ESTIMATE> DECREASED; <PLT MORPHOLOGY> NORMAL PLT MORPH
[2018-04-10 08:06] VITALS: BP 103/52
[2018-04-10] MEDS: ACETAMINOPHEN 325 MG TABLET PO SCH (08:27)
[2018-04-10] MEDS ORDERED: FUROSEMIDE 80 MG TABLET PO SCH (09:00)
[2018-04-10] MEDS: CHOLECALCIFEROL 1,000 UNIT TABLET PO SCH (09:44)
[2018-04-10] MEDS: FLUTICASONE/VILANTEROL 200-25MCG/INH INH SCH (09:44)
[2018-04-10] MEDS: ALLOPURINOL 100 MG TABLET PO SCH (09:44)
[2018-04-10] MEDS: ALBUTEROL/IPRATROPIUM 2.5MG/0.5MG, 3 ML NPPB SCH ×4 (10:25→21:10)
[2018-04-10] MEDS ORDERED: FUROSEMIDE 20 MG/2 ML IV ONE (10:30)
[2018-04-10] MEDS ORDERED: IPRATROPIUM 0.5 MG/2.5 ML INHA NPPB SCH (10:30)
[2018-04-10] MEDS: DIPHENHYDRAMINE 50 MG/ML, 1ML IVPush SCH (11:07)
[2018-04-10] MEDS: ONDANSETRON 8 MG in SODIUM CHLORIDE 0.9% 50 ML IVPB SCH (11:07)
[2018-04-10] MEDS: FAMOTIDINE 20 MG/2 ML IVPush SCH (11:08)
[2018-04-10] MEDS: SODIUM CHLORIDE 0.9% IV SCH (12:25)
[2018-04-10] MEDS: AZACITIDINE IV SCH (12:25)
[2018-04-10 14:22] VITALS: BP 163/90
[2018-04-10] MEDS: OXYcodone/APAP 5/325MG TABLET PO PRN (14:31)
[2018-04-10] MEDS: NICOTINE 7 MG/24 HR PATCH.TD24 TD SCH (15:45)
[2018-04-10 18:55] VITALS: BP 142/80
[2018-04-10] MEDS: DOCUSATE 100 MG CAPSULE PO PRN (21:08)
[2018-04-11] MEDS: HEPARIN 5,000 UNITS/ML, 1ML SQ SCH ×3 (01:30→17:06)
[2018-04-11 03:59] VITALS: BP 138/77
[2018-04-11 06:43] LABS: MEAN CORPUSCULAR HEMOGLOBIN 33.3 pg (27.0-34.8); MEAN CORPUSCULAR HGB CONC 32.9 g/dL (32.4-35.8); MEAN CORPUSCULAR VOLUME 101.4 fL (80-100); RED BLOOD COUNT 2.32 x10^6/uL (3.82-5.3); RED CELL DISTRIBUTION WIDTH 29.1 % (9.6-15.2)
[2018-04-11] MEDS: ALBUTEROL/IPRATROPIUM 2.5MG/0.5MG, 3 ML NPPB SCH ×4 (06:45→19:24)
[2018-04-11 07:01] LABS: MD YES
[2018-04-11 07:02] LABS: MEAN PLATELET VOLUME 7.6 fL (7.4-10.4); PLATELET COUNT 84 x10^3/uL (130-400)
[2018-04-11 07:07] LABS: BAND#(MANUAL) 0.42 x10^3/uL; BANDS%(MANUAL) 2 % (0-7)
[2018-04-11 07:08] LABS: NRBC % (MANUAL) 4 % (0-1)
[2018-04-11 07:14] LABS: ALBUMIN 2.3 g/dL (3.4-5.0); ANION GAP 6 mmol/L (5-15); CALCIUM 8.5 mg/dL (8.5-10.1); CHLORIDE 103 mmol/L (98-107)
[2018-04-11 07:18] LABS: ALANINE AMINOTRANSFERASE 24 U/L (12-78); ALKALINE PHOSPHATASE 109 U/L (45-117); BILIRUBIN,TOTAL 0.5 mg/dL (0.2-1.0); CREATININE 1.55 mg/dL (0.55-1.02); TOTAL PROTEIN 6.6 g/dL (6.4-8.2)
[2018-04-11 07:32] VITALS: BP 149/72
[2018-04-11] MEDS: ALLOPURINOL 100 MG TABLET PO SCH (08:20)
[2018-04-11] MEDS: CHOLECALCIFEROL 1,000 UNIT TABLET PO SCH (08:20)
[2018-04-11] MEDS: LEVOTHYROXINE 100 MCG TABLET PO SCH (08:20)
[2018-04-11] MEDS: FLUTICASONE/VILANTEROL 200-25MCG/INH INH SCH (08:20)
[2018-04-11] MEDS ORDERED: FUROSEMIDE 20 MG/2 ML IV SCH (09:00)
[2018-04-11] MEDS ORDERED: CATHFLO-ALTEPLASE 2 MG/2 ML CATHFLUSH ONE ×2 (10:00)
[2018-04-11] MEDS: ACETAMINOPHEN 325 MG TABLET PO SCH (10:03)
[2018-04-11] MEDS: DIPHENHYDRAMINE 50 MG/ML, 1ML IVPush SCH (11:33)
[2018-04-11] MEDS: ONDANSETRON 8 MG in SODIUM CHLORIDE 0.9% 50 ML IVPB SCH (11:33)
[2018-04-11] MEDS: FAMOTIDINE 20 MG/2 ML IVPush SCH (11:33)
[2018-04-11] MEDS: AZACITIDINE IV SCH (12:42)
[2018-04-11] MEDS: SODIUM CHLORIDE 0.9% IV SCH (12:42)
[2018-04-11 12:46] LABS: BLASTS # (MANUAL) 11.87 x10^3/uL (0-0); MONOS% (MANUAL) 8 % (2-9); REACTIVE LYMPHS % (MANUAL) 0 % (0-0)
[2018-04-11 12:47] LABS: LYMPH#(MANUAL) 6.78 x10^3/uL (1-3.4); LYMPHS% (MANUAL) 32 % (22-44); SEG#(MANUAL) 0.42 x10^3/uL (1.8-6.8); SEGS% (MANUAL) 2 % (42-75)
[2018-04-11 12:48] LABS: <PLATELET ESTIMATE> DECREASED; <PLT MORPHOLOGY> NORMAL PLT MORPH; ANISOCYTOSIS 2+
[2018-04-11 12:51] LABS: BLASTS % (MANUAL) 56 % (0-0)
[2018-04-11] MEDS: OXYcodone/APAP 5/325MG TABLET PO PRN (13:34)
[2018-04-11 14:47] VITALS: BP 111/70
[2018-04-11] MEDS: NICOTINE 7 MG/24 HR PATCH.TD24 TD SCH (16:00)
[2018-04-11] MEDS ORDERED: VENETOCLAX 100 MG PO ONE (17:00)
[2018-04-11] MEDS ORDERED: RASBURICASE 7.5 MG in SODIUM CHLORIDE 0.9% 50 ML IV ONE (18:00)
[2018-04-11 18:59] VITALS: BP 133/81
[2018-04-11] MEDS: FUROSEMIDE 40 MG/4 ML IV SCH (22:05)
[2018-04-11] MEDS: DOCUSATE 100 MG CAPSULE PO PRN (22:12)
[2018-04-12] VITALS (7 sets, daily range): BP systolic 123–188; BP diastolic 68–80
[2018-04-12] MEDS: HEPARIN 5,000 UNITS/ML, 1ML SQ SCH ×3 (01:38→17:25)
[2018-04-12] MEDS: LEVOTHYROXINE 100 MCG TABLET PO SCH (05:44)
[2018-04-12 05:59] LABS: CHLORIDE 102 mmol/L (98-107)
[2018-04-12 06:00] LABS: MEAN CORPUSCULAR HEMOGLOBIN 34.2 pg (27.0-34.8); MEAN CORPUSCULAR HGB CONC 33.6 g/dL (32.4-35.8); MEAN CORPUSCULAR VOLUME 101.7 fL (80-100); MEAN PLATELET VOLUME 7.2 fL (7.4-10.4); PLATELET COUNT 77 x10^3/uL (130-400); RED BLOOD COUNT 2.08 x10^6/uL (3.82-5.3); RED CELL DISTRIBUTION WIDTH 28.5 % (9.6-15.2)
[2018-04-12 06:16] LABS: ALANINE AMINOTRANSFERASE 21 U/L (12-78); ALBUMIN 2.2 g/dL (3.4-5.0); ALKALINE PHOSPHATASE 94 U/L (45-117); ANION GAP 6 mmol/L (5-15); BILIRUBIN,TOTAL 0.4 mg/dL (0.2-1.0); CALCIUM 7.9 mg/dL (8.5-10.1); CREATININE 1.77 mg/dL (0.55-1.02); TOTAL PROTEIN 6.2 g/dL (6.4-8.2)
[2018-04-12 06:24] LABS: MD YES
[2018-04-12 06:34] LABS: LYMPH#(MANUAL) 4.52 x10^3/uL (1-3.4); LYMPHS% (MANUAL) 29 % (22-44); MONOS#(MANUAL) 0.78 x10^3/uL (0.3-2.7); MONOS% (MANUAL) 5 % (2-9); SEGS% (MANUAL) 9 % (42-75)
[2018-04-12 06:35] LABS: BLASTS # (MANUAL) 8.89 x10^3/uL (0-0); BLASTS % (MANUAL) 57 % (0-0); NRBC % (MANUAL) 4 % (0-1)
[2018-04-12] MEDS: ALBUTEROL/IPRATROPIUM 2.5MG/0.5MG, 3 ML NPPB SCH ×5 (06:35→18:30)
[2018-04-12 06:36] LABS: <PLATELET ESTIMATE> DECREASED; <PLT MORPHOLOGY> NORMAL PLT MORPH; ANISOCYTOSIS 2+
[2018-04-12 06:37] LABS: POLYCHROMASIA 1+
[2018-04-12] MEDS: FUROSEMIDE 40 MG/4 ML IV SCH (08:47)
[2018-04-12] MEDS: FLUTICASONE/VILANTEROL 200-25MCG/INH INH SCH (08:49)
[2018-04-12] MEDS: ALLOPURINOL 100 MG TABLET PO SCH (08:50)
[2018-04-12] MEDS: CHOLECALCIFEROL 1,000 UNIT TABLET PO SCH (08:50)
[2018-04-12] MEDS: ACETAMINOPHEN 325 MG TABLET PO SCH (10:18)
[2018-04-12] MEDS: FAMOTIDINE 20 MG/2 ML IVPush SCH (11:29)
[2018-04-12] MEDS: DIPHENHYDRAMINE 50 MG/ML, 1ML IVPush SCH (11:29)
[2018-04-12] MEDS: ONDANSETRON 8 MG in SODIUM CHLORIDE 0.9% 50 ML IVPB SCH (11:29)
[2018-04-12 13:04] LABS: TROPONIN I < 0.015 ng/mL (0.000-0.045)
[2018-04-12] MEDS: SODIUM CHLORIDE 0.9% IV SCH (13:28)
[2018-04-12] MEDS: AZACITIDINE IV SCH (13:28)
[2018-04-12] MEDS: OXYcodone/APAP 5/325MG TABLET PO PRN ×4 (13:34→19:46)
[2018-04-12] MEDS: NICOTINE 7 MG/24 HR PATCH.TD24 TD SCH (16:00)
[2018-04-12] MEDS: VENETOCLAX 100 MG PO SCH (17:22)
[2018-04-12] MEDS: DOCUSATE 100 MG CAPSULE PO PRN (17:24)
[2018-04-12] MEDS: METOLAZONE 5 MG TABLET PO SCH (18:18)
[2018-04-13] MEDS: HEPARIN 5,000 UNITS/ML, 1ML SQ SCH ×3 (01:17→18:40)
[2018-04-13 02:04] VITALS: BP 123/81
[2018-04-13 05:26] LABS: CHLORIDE 100 mmol/L (98-107)
[2018-04-13 05:31] LABS: MEAN CORPUSCULAR HEMOGLOBIN 32.7 pg (27.0-34.8); MEAN CORPUSCULAR HGB CONC 33.5 g/dL (32.4-35.8); MEAN CORPUSCULAR VOLUME 97.7 fL (80-100); RED BLOOD COUNT 2.56 x10^6/uL (3.82-5.3); RED CELL DISTRIBUTION WIDTH 27.4 % (9.6-15.2)
[2018-04-13 05:32] LABS: TROPONIN I < 0.015 ng/mL (0.000-0.045)
[2018-04-13 05:34] LABS: ALANINE AMINOTRANSFERASE 17 U/L (12-78); ALBUMIN 2.3 g/dL (3.4-5.0); ALKALINE PHOSPHATASE 97 U/L (45-117); ANION GAP 6 mmol/L (5-15); BILIRUBIN,TOTAL 0.9 mg/dL (0.2-1.0); CALCIUM 8.5 mg/dL (8.5-10.1); CREATININE 1.83 mg/dL (0.55-1.02); TOTAL PROTEIN 6.7 g/dL (6.4-8.2)
[2018-04-13 05:54] LABS: MD YES; MEAN PLATELET VOLUME 7.5 fL (7.4-10.4); PLATELET COUNT 64 x10^3/uL (130-400)
[2018-04-13] MEDS ORDERED: METOPROLOL 1 MG/ML, 5ML IVPush ONE (06:00)
[2018-04-13 06:01] LABS: BAND#(MANUAL) 0.14 x10^3/uL; BANDS%(MANUAL) 2 % (0-7); BLASTS % (MANUAL) 50 % (0-0); LYMPH#(MANUAL) 2.66 x10^3/uL (1-3.4); LYMPHS% (MANUAL) 37 % (22-44); MONOS% (MANUAL) 7 % (2-9); NRBC % (MANUAL) 4 % (0-1); SEG#(MANUAL) 0.29 x10^3/uL (1.8-6.8); SEGS% (MANUAL) 4 % (42-75)
[2018-04-13 06:04] LABS: <PLT MORPHOLOGY> NORMAL PLT MORPH
[2018-04-13 06:05] LABS: ANISOCYTOSIS 1+
[2018-04-13 06:06] LABS: <PLATELET ESTIMATE> DECREASED
[2018-04-13] MEDS ORDERED: METOPROLOL 1 MG/ML, 5ML ONE (06:32)
[2018-04-13 08:42] VITALS: BP 106/70
[2018-04-13] MEDS ORDERED: FUROSEMIDE 40 MG/4 ML IV SCH (09:00)
[2018-04-13] MEDS: FLUTICASONE/VILANTEROL 200-25MCG/INH INH SCH (09:24)
[2018-04-13] MEDS: NICOTINE 7 MG/24 HR PATCH.TD24 TD SCH (09:24)
[2018-04-13] MEDS: METOLAZONE 5 MG TABLET PO SCH (09:25)
[2018-04-13] MEDS: FUROSEMIDE 40 MG TABLET PO SCH (09:26)
[2018-04-13] MEDS: LEVOTHYROXINE 100 MCG TABLET PO SCH (09:26)
[2018-04-13] MEDS: CHOLECALCIFEROL 1,000 UNIT TABLET PO SCH (09:26)
[2018-04-13] MEDS: ALLOPURINOL 100 MG TABLET PO SCH (09:27)
[2018-04-13] MEDS: ONDANSETRON ODT 4 MG PO PRN (09:27)
[2018-04-13] MEDS: ACETAMINOPHEN 325 MG TABLET PO SCH (09:27)
[2018-04-13] MEDS: DIPHENHYDRAMINE 50 MG/ML, 1ML IVPush SCH (09:28)
[2018-04-13] MEDS: FAMOTIDINE 20 MG/2 ML IVPush SCH (09:28)
[2018-04-13] MEDS: ONDANSETRON 8 MG in SODIUM CHLORIDE 0.9% 50 ML IVPB SCH (10:00)
[2018-04-13] MEDS: SODIUM CHLORIDE 0.9% IV SCH (11:00)
[2018-04-13] MEDS: ALBUTEROL/IPRATROPIUM 2.5MG/0.5MG, 3 ML NPPB SCH ×3 (11:00→20:30)
[2018-04-13] MEDS: AZACITIDINE IV SCH (11:00)
[2018-04-13] MEDS: VENETOCLAX 100 MG PO SCH (12:00)
[2018-04-13 12:05] VITALS: BP 103/55
[2018-04-13 19:17] VITALS: BP 121/80
[2018-04-14] MEDS ORDERED: CATHFLO-ALTEPLASE 2 MG/2 ML CATHFLUSH ONE
[2018-04-14 00:56] VITALS: BP 106/68
[2018-04-14] MEDS: HEPARIN 5,000 UNITS/ML, 1ML SQ SCH ×3 (04:12→18:10)
[2018-04-14] MEDS: OXYcodone/APAP 5/325MG TABLET PO PRN (04:16)
[2018-04-14] MEDS: LEVOTHYROXINE 100 MCG TABLET PO SCH (06:32)
[2018-04-14 07:15] VITALS: BP 111/68
[2018-04-14] MEDS: ALBUTEROL/IPRATROPIUM 2.5MG/0.5MG, 3 ML NPPB SCH ×4 (07:17→18:38)
[2018-04-14] MEDS: FUROSEMIDE 40 MG TABLET PO SCH (09:34)
[2018-04-14] MEDS: METOLAZONE 5 MG TABLET PO SCH (09:34)
[2018-04-14] MEDS: CHOLECALCIFEROL 1,000 UNIT TABLET PO SCH (09:34)
[2018-04-14] MEDS: FLUTICASONE/VILANTEROL 200-25MCG/INH INH SCH (09:34)
[2018-04-14] MEDS: DOCUSATE 100 MG CAPSULE PO PRN (09:34)
[2018-04-14] MEDS: ALLOPURINOL 100 MG TABLET PO SCH (09:34)
[2018-04-14] MEDS ORDERED: DIPHENHYDRAMINE 50 MG/ML, 1ML IVPush ONE (11:00)
[2018-04-14] MEDS ORDERED: FAMOTIDINE 20 MG/2 ML IVPush ONE (11:00)
[2018-04-14] MEDS ORDERED: ONDANSETRON 8 MG in SODIUM CHLORIDE 0.9% 50 ML IVPB SCH (11:00)
[2018-04-14] MEDS ORDERED: ACETAMINOPHEN 325 MG TABLET PO ONE (11:00)
[2018-04-14 11:28] LABS: ALANINE AMINOTRANSFERASE 17 U/L (12-78); ALBUMIN 2.3 g/dL (3.4-5.0); ANION GAP 7 mmol/L (5-15); CALCIUM 8.6 mg/dL (8.5-10.1); CHLORIDE 96 mmol/L (98-107); CREATININE 1.91 mg/dL (0.55-1.02)
[2018-04-14 11:29] LABS: MD YES; MEAN CORPUSCULAR HEMOGLOBIN 33.2 pg (27.0-34.8); MEAN CORPUSCULAR VOLUME 97.7 fL (80-100); MEAN PLATELET VOLUME 7.6 fL (7.4-10.4); PLATELET COUNT 68 x10^3/uL (130-400); RED BLOOD COUNT 2.54 x10^6/uL (3.82-5.3); RED CELL DISTRIBUTION WIDTH 26.7 % (9.6-15.2)
[2018-04-14 11:30] LABS: ALKALINE PHOSPHATASE 106 U/L (45-117); BILIRUBIN,TOTAL 0.4 mg/dL (0.2-1.0); TOTAL PROTEIN 6.8 g/dL (6.4-8.2)
[2018-04-14 11:40] LABS: LYMPH#(MANUAL) 1.38 x10^3/uL (1-3.4); LYMPHS% (MANUAL) 30 % (22-44); MONOS#(MANUAL) 0.41 x10^3/uL (0.3-2.7); MONOS% (MANUAL) 9 % (2-9); SEG#(MANUAL) 0.41 x10^3/uL (1.8-6.8); SEGS% (MANUAL) 9 % (42-75)
[2018-04-14 11:44] LABS: BLASTS # (MANUAL) 2.39 x10^3/uL (0-0); BLASTS % (MANUAL) 52 % (0-0); NRBC % (MANUAL) 1 % (0-1)
[2018-04-14 11:45] LABS: <PLATELET ESTIMATE> DECREASED; <PLT MORPHOLOGY> NORMAL PLT MORPH; ANISOCYTOSIS 1+
[2018-04-14] MEDS ORDERED: AZACITIDINE IV SCH (12:00)
[2018-04-14] MEDS ORDERED: SODIUM CHLORIDE 0.9% IV SCH (12:00)
[2018-04-14] MEDS: VENETOCLAX 100 MG PO SCH (12:33)
[2018-04-14 12:35] VITALS: BP 112/68
[2018-04-14] MEDS: NICOTINE 7 MG/24 HR PATCH.TD24 TD SCH (16:00)
[2018-04-14 18:50] VITALS: BP 119/74
[2018-04-15] MEDS: HEPARIN 5,000 UNITS/ML, 1ML SQ SCH ×3 (00:46→19:43)
[2018-04-15 01:57] VITALS: BP 133/71
[2018-04-15 03:53] LABS: MEAN CORPUSCULAR HEMOGLOBIN 33.4 pg (27.0-34.8); MEAN CORPUSCULAR HGB CONC 34.2 g/dL (32.4-35.8); MEAN CORPUSCULAR VOLUME 97.8 fL (80-100); RED BLOOD COUNT 2.32 x10^6/uL (3.82-5.3)
[2018-04-15 03:59] LABS: ALANINE AMINOTRANSFERASE 14 U/L (12-78); ANION GAP 5 mmol/L (5-15); CALCIUM 8.6 mg/dL (8.5-10.1); CHLORIDE 97 mmol/L (98-107); CREATININE 1.59 mg/dL (0.55-1.02)
[2018-04-15 04:02] LABS: ALKALINE PHOSPHATASE 96 U/L (45-117); BILIRUBIN,TOTAL 0.5 mg/dL (0.2-1.0); TOTAL PROTEIN 6.5 g/dL (6.4-8.2)
[2018-04-15 04:28] LABS: MEAN PLATELET VOLUME 7.4 fL (7.4-10.4); PLATELET COUNT 65 x10^3/uL (130-400)
[2018-04-15 04:33] LABS: MD YES
[2018-04-15] MEDS: LEVOTHYROXINE 100 MCG TABLET PO SCH (04:52)
[2018-04-15 04:54] LABS: BAND#(MANUAL) 0.08 x10^3/uL; BANDS%(MANUAL) 2 % (0-7); LYMPH#(MANUAL) 1.33 x10^3/uL (1-3.4); LYMPHS% (MANUAL) 34 % (22-44); MONOS#(MANUAL) 0.39 x10^3/uL (0.3-2.7); MONOS% (MANUAL) 10 % (2-9); SEG#(MANUAL) 0.55 x10^3/uL (1.8-6.8); SEGS% (MANUAL) 14 % (42-75)
[2018-04-15 04:57] LABS: BLASTS # (MANUAL) 1.56 x10^3/uL (0-0); BLASTS % (MANUAL) 40 % (0-0); NRBC % (MANUAL) 3 % (0-1)
[2018-04-15 04:58] LABS: ANISOCYTOSIS 1+
[2018-04-15 04:59] LABS: <PLATELET ESTIMATE> DECREASED; <PLT MORPHOLOGY> NORMAL PLT MORPH
[2018-04-15 06:30] VITALS: BP 117/71
[2018-04-15] MEDS: ALBUTEROL/IPRATROPIUM 2.5MG/0.5MG, 3 ML NPPB SCH ×4 (07:15→20:00)
[2018-04-15] MEDS: METOLAZONE 5 MG TABLET PO SCH (07:42)
[2018-04-15] MEDS ORDERED: SENNOSIDES 8.8 MG/5 ML ORAL SOL PO PRN ×2 (08:00→13:30)
[2018-04-15] MEDS: ALLOPURINOL 100 MG TABLET PO SCH (09:08)
[2018-04-15] MEDS: FUROSEMIDE 40 MG TABLET PO SCH (09:08)
[2018-04-15] MEDS: CHOLECALCIFEROL 1,000 UNIT TABLET PO SCH (09:08)
[2018-04-15] MEDS: DOCUSATE 100 MG CAPSULE PO PRN ×2 (09:08→20:52)
[2018-04-15] MEDS: FLUTICASONE/VILANTEROL 200-25MCG/INH INH SCH (10:22)
[2018-04-15] MEDS: PSYLLIUM PACKET PO SCH (11:50)
[2018-04-15 12:30] VITALS: BP 106/64
[2018-04-15] MEDS: ACETAMINOPHEN 325 MG TABLET PO PRN (13:01)
[2018-04-15] MEDS ORDERED: SENNOSIDES 8.8 MG/5 ML ORAL SOL PO ONE ×2 (13:30→14:00)
[2018-04-15] MEDS: VENETOCLAX 100 MG PO SCH (13:47)
[2018-04-15 15:17] VITALS: BP 90/45
[2018-04-15] MEDS ORDERED: VANCOMYCIN PER PHARMACY MC PRN (16:00)
[2018-04-15] MEDS ORDERED: PHARMACOKINETIC CONSULTATION MC ONE (16:30)
[2018-04-15] MEDS ORDERED: PHARMACOKINETIC MONITORING MC PRN (16:30)
[2018-04-15] MEDS ORDERED: CEFEPIME 1 GM in DEXTROSE 5% 50 ML IV SCH (16:30)
[2018-04-15] MEDS ORDERED: SODIUM CHLORIDE 0.9%, 500ML IVBOLUS ONE (17:00)
[2018-04-15 17:02] LABS: HEMOGRAM NOTE RECHECKED; MEAN CORPUSCULAR HEMOGLOBIN 32.6 pg (27.0-34.8); MEAN CORPUSCULAR HGB CONC 33.8 g/dL (32.4-35.8); MEAN CORPUSCULAR VOLUME 96.4 fL (80-100); MEAN PLATELET VOLUME 7.3 fL (7.4-10.4); PLATELET COUNT 71 x10^3/uL (130-400); RED BLOOD COUNT 2.35 x10^6/uL (3.82-5.3); RED CELL DISTRIBUTION WIDTH 26.2 % (9.6-15.2)
[2018-04-15 17:04] LABS: ALANINE AMINOTRANSFERASE 14 U/L (12-78); ALBUMIN 2.2 g/dL (3.4-5.0); ANION GAP 7 mmol/L (5-15); CALCIUM 8.7 mg/dL (8.5-10.1); CHLORIDE 94 mmol/L (98-107)
[2018-04-15 17:07] LABS: ALKALINE PHOSPHATASE 116 U/L (45-117); BILIRUBIN,TOTAL 0.7 mg/dL (0.2-1.0); CREATININE 1.81 mg/dL (0.55-1.02); TOTAL PROTEIN 6.5 g/dL (6.4-8.2)
[2018-04-15] MEDS: CEFEPIME 1 GM in DEXTROSE 5% 50 ML IV SCH (17:12)
[2018-04-15] MEDS: VANCOMYCIN 2,400 MG in SODIUM CHLORIDE 0.9% 500 ML IV SCH ×2 (17:13→18:20)
[2018-04-15] MEDS: NICOTINE 7 MG/24 HR PATCH.TD24 TD SCH (17:19)
[2018-04-15 17:31] LABS: CULTURE INDICATED? NO; MICROSCOPIC NOT IND
[2018-04-15 17:32] LABS: MD YES
[2018-04-15 17:40] LABS: LYMPH#(MANUAL) 1.19 x10^3/uL (1-3.4); LYMPHS% (MANUAL) 36 % (22-44); MONOS#(MANUAL) 0.17 x10^3/uL (0.3-2.7); MONOS% (MANUAL) 5 % (2-9); SEG#(MANUAL) 0.33 x10^3/uL (1.8-6.8); SEGS% (MANUAL) 10 % (42-75)
[2018-04-15 17:41] LABS: ANISOCYTOSIS 1+; BLASTS # (MANUAL) 1.62 x10^3/uL (0-0); NRBC % (MANUAL) 3 % (0-1)
[2018-04-15 17:42] LABS: <PLATELET ESTIMATE> DECREASED; <PLT MORPHOLOGY> NORMAL PLT MORPH
[2018-04-15 17:43] LABS: BLASTS % (MANUAL) 49 % (0-0)
[2018-04-15] MEDS: OXYcodone/APAP 5/325MG TABLET PO PRN ×2 (19:09→19:43)
[2018-04-15] MEDS ORDERED: MORPHINE SULFATE 4 MG/ML, 1ML IVPush ONE (20:30)
[2018-04-15] MEDS ORDERED: POLYETHYLENE GLYCOL 17 GM PACKET PO ONE (20:30)
[2018-04-15] MEDS: SENNOSIDES 8.8 MG/5 ML ORAL SOL PO PRN (21:42)
[2018-04-15] MEDS: LINEZOLID PMX 600MG/300ML 300 ML IV SCH (22:01)
[2018-04-16] MEDS ORDERED: CATHFLO-ALTEPLASE 2 MG/2 ML CATHFLUSH ONE
[2018-04-16] MEDS: OXYcodone/APAP 5/325MG TABLET PO PRN ×2 (00:43→05:05)
[2018-04-16] MEDS: HEPARIN 5,000 UNITS/ML, 1ML SQ SCH ×4 (02:17→19:48)
[2018-04-16 04:30] VITALS: BP 147/82
[2018-04-16 04:55] LABS: ANION GAP 7 mmol/L (5-15); CALCIUM 8.6 mg/dL (8.5-10.1); CHLORIDE 94 mmol/L (98-107); CREATININE 1.84 mg/dL (0.55-1.02)
[2018-04-16 04:56] LABS: ALANINE AMINOTRANSFERASE 14 U/L (12-78); ALBUMIN 2.1 g/dL (3.4-5.0)
[2018-04-16 04:58] LABS: ALKALINE PHOSPHATASE 116 U/L (45-117); BILIRUBIN,TOTAL 0.7 mg/dL (0.2-1.0); TOTAL PROTEIN 6.7 g/dL (6.4-8.2)
[2018-04-16] MEDS: LEVOTHYROXINE 100 MCG TABLET PO SCH (05:04)
[2018-04-16 05:25] LABS: MEAN CORPUSCULAR HEMOGLOBIN 32.5 pg (27.0-34.8); MEAN CORPUSCULAR HGB CONC 33.7 g/dL (32.4-35.8); MEAN CORPUSCULAR VOLUME 96.6 fL (80-100); MEAN PLATELET VOLUME 7.6 fL (7.4-10.4); PLATELET COUNT 54 x10^3/uL (130-400); RED BLOOD COUNT 2.35 x10^6/uL (3.82-5.3); RED CELL DISTRIBUTION WIDTH 25.7 % (9.6-15.2)
[2018-04-16 05:40] LABS: MD YES
[2018-04-16 05:45] LABS: BANDS%(MANUAL) 1 % (0-7); NRBC % (MANUAL) 2 % (0-1)
[2018-04-16 05:54] LABS: LYMPHS% (MANUAL) 13 % (22-44); MONOS% (MANUAL) 9 % (2-9); SEGS% (MANUAL) 15 % (42-75)
[2018-04-16 05:57] LABS: BLASTS % (MANUAL) 62 % (0-0)
[2018-04-16 05:58] LABS: ANISOCYTOSIS 1+
[2018-04-16 05:59] LABS: <PLATELET ESTIMATE> DECREASED; <PLT MORPHOLOGY> NORMAL PLT MORPH
[2018-04-16] MEDS: ALBUTEROL/IPRATROPIUM 2.5MG/0.5MG, 3 ML NPPB SCH ×4 (07:10→19:19)
[2018-04-16] MEDS ORDERED: FUROSEMIDE 40 MG/4 ML IV ONE (08:30)
[2018-04-16] MEDS: FUROSEMIDE 40 MG TABLET PO SCH (09:00)
[2018-04-16] MEDS: CHOLECALCIFEROL 1,000 UNIT TABLET PO SCH (09:20)
[2018-04-16] MEDS: LINEZOLID PMX 600MG/300ML 300 ML IV SCH ×2 (09:21→21:37)
[2018-04-16] MEDS: FLUTICASONE/VILANTEROL 200-25MCG/INH INH SCH (09:21)
[2018-04-16] MEDS: METOLAZONE 5 MG TABLET PO SCH (09:21)
[2018-04-16] MEDS: ALLOPURINOL 100 MG TABLET PO SCH (09:21)
[2018-04-16] MEDS: PSYLLIUM PACKET PO SCH (09:21)
[2018-04-16] MEDS ORDERED: MAGNESIUM CITRATE 300ML ORAL SOL PO PRN (10:00)
[2018-04-16] MEDS: VENETOCLAX 100 MG PO SCH (12:00)
[2018-04-16] MEDS: NICOTINE 7 MG/24 HR PATCH.TD24 TD SCH (15:57)
[2018-04-16] MEDS: CEFEPIME 1 GM in DEXTROSE 5% 50 ML IV SCH (16:35)
[2018-04-16] MEDS ORDERED: METOPROLOL 1 MG/ML, 5ML ONE (22:04)
[2018-04-16] MEDS ORDERED: METOPROLOL 1 MG/ML, 5ML IVPush ONE (22:30)
[2018-04-16] MEDS ORDERED: METOPROLOL 1 MG/ML, 5ML IVPush SCH (22:30)
[2018-04-17 04:00] VITALS: BP 114/70
[2018-04-17 06:07] LABS: CHLORIDE 90 mmol/L (98-107)
[2018-04-17 06:11] LABS: MEAN CORPUSCULAR HEMOGLOBIN 33.3 pg (27.0-34.8); MEAN CORPUSCULAR HGB CONC 33.9 g/dL (32.4-35.8); MEAN CORPUSCULAR VOLUME 98.3 fL (80-100); RED BLOOD COUNT 2.57 x10^6/uL (3.82-5.3)
[2018-04-17 06:18] LABS: ALANINE AMINOTRANSFERASE 10 U/L (12-78); ALBUMIN 1.9 g/dL (3.4-5.0); ALKALINE PHOSPHATASE 119 U/L (45-117); ANION GAP 7 mmol/L (5-15); BILIRUBIN,TOTAL 0.8 mg/dL (0.2-1.0); CALCIUM 8.4 mg/dL (8.5-10.1); CREATININE 1.69 mg/dL (0.55-1.02); TOTAL PROTEIN 6.5 g/dL (6.4-8.2)
[2018-04-17 06:25] LABS: MEAN PLATELET VOLUME 8.4 fL (7.4-10.4); PLATELET COUNT 29 x10^3/uL (130-400)
[2018-04-17 06:45] LABS: MD YES
[2018-04-17] MEDS: ALBUTEROL/IPRATROPIUM 2.5MG/0.5MG, 3 ML NPPB SCH ×4 (06:50→21:05)
[2018-04-17 07:02] LABS: ANISOCYTOSIS 1+; BLASTS % (MANUAL) 67 % (0-0); LYMPH#(MANUAL) 3.42 x10^3/uL (1-3.4); LYMPHS% (MANUAL) 12 % (22-44); MONOS#(MANUAL) 2.85 x10^3/uL (0.3-2.7); MONOS% (MANUAL) 10 % (2-9); NRBC % (MANUAL) 2 % (0-1); SEG#(MANUAL) 3.14 x10^3/uL (1.8-6.8); SEGS% (MANUAL) 11 % (42-75)
[2018-04-17 07:03] LABS: <PLATELET ESTIMATE> DECREASED; <PLT MORPHOLOGY> NORMAL PLT MORPH
[2018-04-17] MEDS: LEVOTHYROXINE 100 MCG TABLET PO SCH (07:04)
[2018-04-17] MEDS: FUROSEMIDE 40 MG TABLET PO SCH (09:00)
[2018-04-17] MEDS ORDERED: FUROSEMIDE 40 MG/4 ML IV SCH (09:00)
[2018-04-17] MEDS: CHOLECALCIFEROL 1,000 UNIT TABLET PO SCH (09:51)
[2018-04-17] MEDS: ALLOPURINOL 100 MG TABLET PO SCH (09:51)
[2018-04-17] MEDS: METOPROLOL TARTRATE 25 MG TABLET PO SCH ×2 (09:51→16:39)
[2018-04-17] MEDS: PSYLLIUM PACKET PO SCH (09:52)
[2018-04-17] MEDS: METOLAZONE 5 MG TABLET PO SCH (09:52)
[2018-04-17] MEDS: FLUTICASONE/VILANTEROL 200-25MCG/INH INH SCH (09:58)
[2018-04-17] MEDS: HEPARIN 5,000 UNITS/ML, 1ML SQ SCH ×2 (10:30→16:39)
[2018-04-17] MEDS: VENETOCLAX 100 MG PO SCH (12:00)
[2018-04-17] MEDS ORDERED: VENETOCLAX 100 MG TAB ONE (15:27)
[2018-04-17] MEDS: NICOTINE 7 MG/24 HR PATCH.TD24 TD SCH (15:57)
[2018-04-17] MEDS: CEFEPIME 1 GM in DEXTROSE 5% 50 ML IV SCH (16:38)
[2018-04-17] MEDS ORDERED: FUROSEMIDE 40 MG/4 ML IV ONE (17:00)
[2018-04-18] MEDS: HEPARIN 5,000 UNITS/ML, 1ML SQ SCH ×3 (02:30→18:30)
[2018-04-18 05:00] VITALS: BP 112/58
[2018-04-18] MEDS: LEVOTHYROXINE 100 MCG TABLET PO SCH (05:58)
[2018-04-18] MEDS: METOPROLOL TARTRATE 25 MG TABLET PO SCH ×2 (05:58→18:40)
[2018-04-18] MEDS: ALBUTEROL/IPRATROPIUM 2.5MG/0.5MG, 3 ML NPPB SCH ×4 (07:00→19:16)
[2018-04-18] MEDS: ALLOPURINOL 100 MG TABLET PO SCH (08:29)
[2018-04-18] MEDS: FUROSEMIDE 40 MG TABLET PO SCH (08:29)
[2018-04-18] MEDS: CHOLECALCIFEROL 1,000 UNIT TABLET PO SCH (08:29)
[2018-04-18] MEDS: METOLAZONE 5 MG TABLET PO SCH (08:29)
[2018-04-18] MEDS ORDERED: POTASSIUM CHLORIDE 20 MEQ TAB.ER.PRT PO ONE (09:00)
[2018-04-18] MEDS ORDERED: FUROSEMIDE 40 MG/4 ML IV ONE (09:00)
[2018-04-18] MEDS: FLUTICASONE/VILANTEROL 200-25MCG/INH INH SCH (09:00)
[2018-04-18 09:51] LABS: ALBUMIN 1.9 g/dL (3.4-5.0); CALCIUM 8.4 mg/dL (8.5-10.1); CHLORIDE 87 mmol/L (98-107)
[2018-04-18 09:56] LABS: ALANINE AMINOTRANSFERASE 12 U/L (12-78); ALKALINE PHOSPHATASE 105 U/L (45-117); BILIRUBIN,TOTAL 0.4 mg/dL (0.2-1.0); CREATININE 1.98 mg/dL (0.55-1.02); TOTAL PROTEIN 6.1 g/dL (6.4-8.2)
[2018-04-18 09:59] LABS: MEAN CORPUSCULAR HEMOGLOBIN 31.9 pg (27.0-34.8); MEAN CORPUSCULAR HGB CONC 33.2 g/dL (32.4-35.8); MEAN CORPUSCULAR VOLUME 96.2 fL (80-100); MEAN PLATELET VOLUME 10.2 fL (7.4-10.4); RED BLOOD COUNT 2.38 x10^6/uL (3.82-5.3); RED CELL DISTRIBUTION WIDTH 26.3 % (9.6-15.2)
[2018-04-18 10:00] LABS: ANION GAP 11 mmol/L (5-15); MD YES
[2018-04-18 10:04] LABS: BAND#(MANUAL) 0.24 x10^3/uL; BANDS%(MANUAL) 1 % (0-7); EOS#(MANUAL) 0.24 x10^3/uL (0.0-0.4); EOS% (MANUAL) 1 % (1-7); MONOS#(MANUAL) 4.03 x10^3/uL (0.3-2.7); MONOS% (MANUAL) 17 % (2-9); NRBC % (MANUAL) 1 % (0-1); SEG#(MANUAL) 1.42 x10^3/uL (1.8-6.8); SEGS% (MANUAL) 6 % (42-75)
[2018-04-18 10:05] LABS: LYMPH#(MANUAL) 3.32 x10^3/uL (1-3.4); LYMPHS% (MANUAL) 14 % (22-44)
[2018-04-18 10:07] LABS: BLASTS # (MANUAL) 14.46 x10^3/uL (0-0); BLASTS % (MANUAL) 61 % (0-0); PLATELET COUNT 18 x10^3/uL (130-400)
[2018-04-18 10:08] LABS: ANISOCYTOSIS 1+
[2018-04-18 10:09] LABS: <PLATELET ESTIMATE> DECREASED; <PLT MORPHOLOGY> NORMAL PLT MORPH
[2018-04-18] MEDS: SODIUM BICARBONATE 4.0%, 5ML NPPB SCH ×2 (11:00→14:40)
[2018-04-18] MEDS: PSYLLIUM PACKET PO SCH (11:40)
[2018-04-18] MEDS ORDERED: VENETOCLAX 100 MG PO SCH ×2 (12:00)
[2018-04-18] MEDS: VENETOCLAX 100 MG TAB PO SCH (12:00)
[2018-04-18] MEDS: NICOTINE 7 MG/24 HR PATCH.TD24 TD SCH (16:00)
[2018-04-18] MEDS: OXYcodone/APAP 5/325MG TABLET PO PRN ×3 (16:30→23:38)
[2018-04-18] MEDS: CEFEPIME 1 GM in DEXTROSE 5% 50 ML IV SCH (16:34)
[2018-04-18] MEDS ORDERED: METOPROLOL 1 MG/ML, 5ML ONE (18:38)
[2018-04-18] MEDS ORDERED: METOPROLOL 1 MG/ML, 5ML IVPush PRN (19:00)
[2018-04-18] MEDS ORDERED: SODIUM CHLORIDE 0.9%, 500ML IVBOLUS ONE (21:00)
[2018-04-18] MEDS: DOCUSATE 100 MG CAPSULE PO PRN (23:41)
[2018-04-19] MEDS: PHENYLEPHRINE 10 MG in SODIUM CHLORIDE 0.9% 249 ML IV PRN ×2 (01:04→05:16)
[2018-04-19] MEDS: OXYcodone/APAP 5/325MG TABLET PO PRN ×2 (01:04→05:28)
[2018-04-19] MEDS: HEPARIN 5,000 UNITS/ML, 1ML SQ SCH ×2 (02:51→10:28)
[2018-04-19 04:34] LABS: MEAN CORPUSCULAR HEMOGLOBIN 31.8 pg (27.0-34.8); MEAN CORPUSCULAR HGB CONC 33.1 g/dL (32.4-35.8); MEAN CORPUSCULAR VOLUME 96.1 fL (80-100); RED BLOOD COUNT 2.31 x10^6/uL (3.82-5.3); RED CELL DISTRIBUTION WIDTH 25.4 % (9.6-15.2)
[2018-04-19 04:38] LABS: ALBUMIN 1.9 g/dL (3.4-5.0); ANION GAP 5 mmol/L (5-15); CALCIUM 8.3 mg/dL (8.5-10.1); CHLORIDE 91 mmol/L (98-107)
[2018-04-19 04:41] LABS: ALANINE AMINOTRANSFERASE 12 U/L (12-78); ALKALINE PHOSPHATASE 97 U/L (45-117); BILIRUBIN,TOTAL 0.5 mg/dL (0.2-1.0); CREATININE 2.18 mg/dL (0.55-1.02)
[2018-04-19] MEDS: LEVOTHYROXINE 100 MCG TABLET PO SCH (05:28)
[2018-04-19] MEDS: PHENYLEPHRINE 20 MG in SODIUM CHLORIDE 0.9% 248 ML IV PRN ×2 (05:29→18:15)
[2018-04-19 05:33] VITALS: BP 119/80
[2018-04-19 05:37] LABS: MD YES
[2018-04-19 05:40] LABS: MEAN PLATELET VOLUME 10.1 fL (7.4-10.4)
[2018-04-19 05:45] LABS: PLATELET COUNT 18 x10^3/uL (130-400)
[2018-04-19 05:49] LABS: <PLATELET ESTIMATE> DECREASED; <PLT MORPHOLOGY> NORMAL PLT MORPH; ANISOCYTOSIS 1+; BLASTS # (MANUAL) 14.34 x10^3/uL (0-0); LYMPH#(MANUAL) 3.85 x10^3/uL (1-3.4); LYMPHS% (MANUAL) 18 % (22-44); MONOS% (MANUAL) 7 % (2-9); NRBC % (MANUAL) 1 % (0-1); SEG#(MANUAL) 1.71 x10^3/uL (1.8-6.8); SEGS% (MANUAL) 8 % (42-75)
[2018-04-19 05:52] LABS: BLASTS % (MANUAL) 67 % (0-0)
[2018-04-19] MEDS: METOPROLOL TARTRATE 25 MG TABLET PO SCH ×2 (07:00→15:09)
[2018-04-19] MEDS: SODIUM BICARBONATE 4.0%, 5ML NPPB SCH ×5 (07:00→19:12)
[2018-04-19] MEDS: ALBUTEROL/IPRATROPIUM 2.5MG/0.5MG, 3 ML NPPB SCH ×4 (07:10→19:12)
[2018-04-19] MEDS: PSYLLIUM PACKET PO SCH (09:00)
[2018-04-19] MEDS: FLUTICASONE/VILANTEROL 200-25MCG/INH INH SCH (10:26)
[2018-04-19] MEDS: CHOLECALCIFEROL 1,000 UNIT TABLET PO SCH (10:27)
[2018-04-19] MEDS: ALLOPURINOL 100 MG TABLET PO SCH (10:27)
[2018-04-19] MEDS ORDERED: PHENYLEPHRINE 10 MG/ML ONE (12:17)
[2018-04-19] MEDS: VENETOCLAX 100 MG TAB PO SCH (12:58)
[2018-04-20 04:20] VITALS: BP 116/66
[2018-04-20 04:40] LABS: ALBUMIN 1.9 g/dL (3.4-5.0); CALCIUM 8.5 mg/dL (8.5-10.1); CHLORIDE 90 mmol/L (98-107)
[2018-04-20 04:45] LABS: ALANINE AMINOTRANSFERASE 12 U/L (12-78); ALKALINE PHOSPHATASE 96 U/L (45-117); ANION GAP 6 mmol/L (5-15); BILIRUBIN,TOTAL 0.4 mg/dL (0.2-1.0); CREATININE 1.81 mg/dL (0.55-1.02)
[2018-04-20 04:47] LABS: MEAN CORPUSCULAR HGB CONC 33.7 g/dL (32.4-35.8); MEAN CORPUSCULAR VOLUME 97.8 fL (80-100); MEAN PLATELET VOLUME 9.8 fL (7.4-10.4); RED BLOOD COUNT 2.21 x10^6/uL (3.82-5.3); RED CELL DISTRIBUTION WIDTH 25.4 % (9.6-15.2)
[2018-04-20 04:50] LABS: PLATELET COUNT 17 x10^3/uL (130-400)
[2018-04-20 05:39] LABS: MD YES
[2018-04-20 05:42] LABS: LYMPH#(MANUAL) 1.44 x10^3/uL (1-3.4); LYMPHS% (MANUAL) 19 % (22-44); MONOS#(MANUAL) 0.68 x10^3/uL (0.3-2.7); MONOS% (MANUAL) 9 % (2-9); SEG#(MANUAL) 0.53 x10^3/uL (1.8-6.8); SEGS% (MANUAL) 7 % (42-75)
[2018-04-20 05:43] LABS: BLASTS # (MANUAL) 4.94 x10^3/uL (0-0); BLASTS % (MANUAL) 65 % (0-0)
[2018-04-20 05:44] LABS: ANISOCYTOSIS 1+
[2018-04-20 05:45] LABS: <PLATELET ESTIMATE> DECREASED; <PLT MORPHOLOGY> NORMAL PLT MORPH
[2018-04-20] MEDS: LEVOTHYROXINE 100 MCG TABLET PO SCH (06:18)
[2018-04-20] MEDS: METOPROLOL TARTRATE 25 MG TABLET PO SCH (06:20)
[2018-04-20] MEDS: ALBUTEROL/IPRATROPIUM 2.5MG/0.5MG, 3 ML NPPB SCH ×4 (06:56→19:55)
[2018-04-20] MEDS: SODIUM BICARBONATE 4.0%, 5ML NPPB SCH ×4 (06:56→19:55)
[2018-04-20] MEDS ORDERED: SODIUM CHLORIDE 0.9% 1,000 ML IV SCH (07:00)
[2018-04-20] MEDS ORDERED: DIPHENHYDRAMINE 12.5MG/5ML, 10ML UDC PO ONE (09:00)
[2018-04-20] MEDS ORDERED: ACETAMINOPHEN 325 MG TABLET PO ONE (09:00)
[2018-04-20] MEDS ORDERED: FUROSEMIDE 20 MG/2 ML IV PRN (09:00)
[2018-04-20] MEDS: FLUTICASONE/VILANTEROL 200-25MCG/INH INH SCH (09:36)
[2018-04-20] MEDS: PSYLLIUM PACKET PO SCH (09:37)
[2018-04-20] MEDS: CHOLECALCIFEROL 1,000 UNIT TABLET PO SCH (09:37)
[2018-04-20] MEDS: ALLOPURINOL 100 MG TABLET PO SCH (09:37)
[2018-04-20] MEDS: AcetaZOLAMIDE INJ 500 MG IVPush SCH ×2 (09:48→20:57)
[2018-04-20 10:39] VITALS: BP 98/63
[2018-04-20 10:55] VITALS: BP 101/65
[2018-04-20 11:27] VITALS: BP 105/67
[2018-04-20] MEDS: OXYcodone/APAP 5/325MG TABLET PO PRN ×2 (12:09→21:11)
[2018-04-20] MEDS: LEVOFLOXACIN 750 MG TABLET PO SCH (12:10)
[2018-04-20 13:15] VITALS: BP 107/64
[2018-04-20] MEDS: VENETOCLAX 100 MG TAB PO SCH (13:21)
[2018-04-20] MEDS: BISACODYL 10 MG SUPP PR PRN (17:18)
[2018-04-20] MEDS: DOCUSATE 100 MG CAPSULE PO PRN (20:57)
[2018-04-20] MEDS: SENNOSIDES 8.8 MG/5 ML ORAL SOL PO PRN (20:57)
[2018-04-20] MEDS ORDERED: CATHFLO-ALTEPLASE 2 MG/2 ML CATHFLUSH ONE (21:30)
[2018-04-21 04:18] LABS: MEAN CORPUSCULAR HEMOGLOBIN 32.2 pg (27.0-34.8); MEAN CORPUSCULAR HGB CONC 33.9 g/dL (32.4-35.8); MEAN CORPUSCULAR VOLUME 95.2 fL (80-100); RED BLOOD COUNT 2.64 x10^6/uL (3.82-5.3); RED CELL DISTRIBUTION WIDTH 23.4 % (9.6-15.2)
[2018-04-21 04:27] LABS: CHLORIDE 89 mmol/L (98-107)
[2018-04-21 04:33] LABS: ALANINE AMINOTRANSFERASE 16 U/L (12-78); ALBUMIN 2.1 g/dL (3.4-5.0); ALKALINE PHOSPHATASE 97 U/L (45-117); ANION GAP 8 mmol/L (5-15); BILIRUBIN,TOTAL 0.4 mg/dL (0.2-1.0); CALCIUM 8.6 mg/dL (8.5-10.1); CREATININE 1.88 mg/dL (0.55-1.02); TOTAL PROTEIN 6.2 g/dL (6.4-8.2)
[2018-04-21] MEDS: LEVOTHYROXINE 100 MCG TABLET PO SCH (04:54)
[2018-04-21] MEDS: OXYcodone/APAP 5/325MG TABLET PO PRN (04:54)
[2018-04-21 04:55] VITALS: BP 99/62
[2018-04-21 04:59] LABS: MD YES; MEAN PLATELET VOLUME 9.5 fL (7.4-10.4)
[2018-04-21 05:04] LABS: LYMPH#(MANUAL) 1.78 x10^3/uL (1-3.4); LYMPHS% (MANUAL) 25 % (22-44); MONOS#(MANUAL) 0.43 x10^3/uL (0.3-2.7); MONOS% (MANUAL) 6 % (2-9); SEG#(MANUAL) 0.78 x10^3/uL (1.8-6.8); SEGS% (MANUAL) 11 % (42-75)
[2018-04-21 05:05] LABS: BLASTS # (MANUAL) 4.12 x10^3/uL (0-0); BLASTS % (MANUAL) 58 % (0-0); NRBC % (MANUAL) 1 % (0-1)
[2018-04-21 05:06] LABS: ANISOCYTOSIS 1+
[2018-04-21 05:09] LABS: PLATELET COUNT 18 x10^3/uL (130-400)
[2018-04-21 05:11] LABS: <PLATELET ESTIMATE> DECREASED; LARGE PLATELETS 1+
[2018-04-21] MEDS: SODIUM BICARBONATE 4.0%, 5ML NPPB SCH ×4 (08:05→20:00)
[2018-04-21] MEDS: ALBUTEROL/IPRATROPIUM 2.5MG/0.5MG, 3 ML NPPB SCH ×4 (08:05→20:00)
[2018-04-21] MEDS ORDERED: PINK LADY ENEMA 490 ML BOTTLE PR PRN (09:00)
[2018-04-21] MEDS ORDERED: DIGOXIN 0.25 MG/ML, 2ML IVPush ONE (09:00)
[2018-04-21] MEDS: ALLOPURINOL 100 MG TABLET PO SCH (09:47)
[2018-04-21] MEDS: CHOLECALCIFEROL 1,000 UNIT TABLET PO SCH (09:49)
[2018-04-21] MEDS: POLYETHYLENE GLYCOL 17 GM PACKET NG SCH ×2 (09:51→20:17)
[2018-04-21] MEDS: FLUTICASONE/VILANTEROL 200-25MCG/INH INH SCH (09:52)
[2018-04-21] MEDS ORDERED: VENETOCLAX 100 MG TAB PO SCH ×2 (12:00)
[2018-04-21] MEDS ORDERED: VENETOCLAX 100 MG PO SCH (12:00)
[2018-04-21] MEDS ORDERED: CATHFLO-ALTEPLASE 2 MG/2 ML CATHFLUSH ONE (14:30)
[2018-04-21] MEDS: BISACODYL 10 MG SUPP PR PRN (20:17)
[2018-04-21] MEDS: DOCUSATE 100 MG CAPSULE PO PRN (20:17)
[2018-04-22 05:10] VITALS: BP 121/70
[2018-04-22] MEDS: LEVOTHYROXINE 100 MCG TABLET PO SCH (06:24)
[2018-04-22] MEDS: ALBUTEROL/IPRATROPIUM 2.5MG/0.5MG, 3 ML NPPB SCH ×4 (07:00→20:00)
[2018-04-22 07:13] LABS: ALANINE AMINOTRANSFERASE 15 U/L (12-78); ALBUMIN 2.1 g/dL (3.4-5.0); ANION GAP 10 mmol/L (5-15); CHLORIDE 89 mmol/L (98-107); CREATININE 1.82 mg/dL (0.55-1.02)
[2018-04-22 07:15] LABS: ALKALINE PHOSPHATASE 103 U/L (45-117); BILIRUBIN,TOTAL 0.4 mg/dL (0.2-1.0); TOTAL PROTEIN 6.2 g/dL (6.4-8.2)
[2018-04-22 07:20] LABS: MEAN CORPUSCULAR HEMOGLOBIN 32.4 pg (27.0-34.8); MEAN CORPUSCULAR HGB CONC 33.8 g/dL (32.4-35.8); MEAN CORPUSCULAR VOLUME 95.7 fL (80-100); MEAN PLATELET VOLUME 9.3 fL (7.4-10.4); RED BLOOD COUNT 2.43 x10^6/uL (3.82-5.3)
[2018-04-22 07:21] LABS: MD YES
[2018-04-22 07:25] LABS: BAND#(MANUAL) 0.16 x10^3/uL; BANDS%(MANUAL) 1 % (0-7); BLASTS # (MANUAL) 9.76 x10^3/uL (0-0); LYMPH#(MANUAL) 2.24 x10^3/uL (1-3.4); LYMPHS% (MANUAL) 14 % (22-44); MONOS#(MANUAL) 2.08 x10^3/uL (0.3-2.7); MONOS% (MANUAL) 13 % (2-9); SEG#(MANUAL) 1.76 x10^3/uL (1.8-6.8); SEGS% (MANUAL) 11 % (42-75)
[2018-04-22 07:26] LABS: <PLATELET ESTIMATE> DECREASED; <PLT MORPHOLOGY> NORMAL PLT MORPH; ANISOCYTOSIS 1+; POLYCHROMASIA 1+
[2018-04-22 07:30] LABS: PLATELET COUNT 19 x10^3/uL (130-400)
[2018-04-22 07:31] LABS: BLASTS % (MANUAL) 61 % (0-0)
[2018-04-22] MEDS: LEVOFLOXACIN 750 MG TABLET PO SCH (09:51)
[2018-04-22] MEDS: FLUTICASONE/VILANTEROL 200-25MCG/INH INH SCH (09:51)
[2018-04-22] MEDS: ALLOPURINOL 100 MG TABLET PO SCH (09:51)
[2018-04-22] MEDS: CHOLECALCIFEROL 1,000 UNIT TABLET PO SCH (09:52)
[2018-04-22] MEDS: POLYETHYLENE GLYCOL 17 GM PACKET NG SCH ×2 (09:56→20:09)
[2018-04-22] MEDS: OXYcodone/APAP 5/325MG TABLET PO PRN ×3 (11:13→20:08)
[2018-04-22] MEDS ORDERED: SODIUM CHLORIDE 0.9%, 500ML IVBOLUS ONE ×2 (12:00→13:00)
[2018-04-22] MEDS: VENETOCLAX 100 MG TAB PO SCH (13:27)
[2018-04-22] MEDS: METHYLNALTREXONE 12 MG/0.6 ML SQ SCH (14:41)
[2018-04-22] MEDS ORDERED: DIGOXIN 0.25 MG/ML, 2ML IVPush ONE ×5 (15:00→23:15)
[2018-04-22] MEDS ORDERED: SODIUM CHLORIDE 0.9% 1,000 ML IV SCH ×2 (15:30)
[2018-04-22] MEDS: ONDANSETRON ODT 4 MG PO PRN (20:08)
[2018-04-22] MEDS: DOCUSATE 100 MG CAPSULE PO PRN (20:08)
[2018-04-22] MEDS: BISACODYL 10 MG SUPP PR PRN (20:08)
[2018-04-23] MEDS: OXYcodone/APAP 5/325MG TABLET PO PRN ×3 (01:53→22:24)
[2018-04-23 03:57] VITALS: BP 121/74
[2018-04-23 04:43] LABS: MEAN CORPUSCULAR HEMOGLOBIN 32.2 pg (27.0-34.8); MEAN CORPUSCULAR HGB CONC 33.8 g/dL (32.4-35.8); MEAN CORPUSCULAR VOLUME 95.4 fL (80-100); RED BLOOD COUNT 2.31 x10^6/uL (3.82-5.3); RED CELL DISTRIBUTION WIDTH 23.1 % (9.6-15.2)
[2018-04-23 04:44] LABS: ALANINE AMINOTRANSFERASE 15 U/L (12-78); ANION GAP 5 mmol/L (5-15); CHLORIDE 93 mmol/L (98-107); CREATININE 1.83 mg/dL (0.55-1.02)
[2018-04-23 04:59] LABS: ALKALINE PHOSPHATASE 102 U/L (45-117); BILIRUBIN,TOTAL 0.4 mg/dL (0.2-1.0); TOTAL PROTEIN 6.1 g/dL (6.4-8.2)
[2018-04-23 05:00] LABS: MEAN PLATELET VOLUME 9.6 fL (7.4-10.4); PLATELET COUNT 20 x10^3/uL (130-400)
[2018-04-23 05:48] LABS: MD YES
[2018-04-23 06:03] LABS: <PLATELET ESTIMATE> DECREASED; <PLT MORPHOLOGY> NORMAL PLT MORPH; ANISOCYTOSIS 1+; BLASTS # (MANUAL) 17.61 x10^3/uL (0-0); LYMPH#(MANUAL) 3.37 x10^3/uL (1-3.4); LYMPHS% (MANUAL) 13 % (22-44); MONOS#(MANUAL) 3.11 x10^3/uL (0.3-2.7); MONOS% (MANUAL) 12 % (2-9); SEG#(MANUAL) 1.81 x10^3/uL (1.8-6.8); SEGS% (MANUAL) 7 % (42-75)
[2018-04-23 06:04] LABS: POLYCHROMASIA 1+
[2018-04-23 06:06] LABS: BLASTS % (MANUAL) 68 % (0-0)
[2018-04-23] MEDS: LEVOTHYROXINE 100 MCG TABLET PO SCH (06:38)
[2018-04-23] MEDS: ALBUTEROL/IPRATROPIUM 2.5MG/0.5MG, 3 ML NPPB SCH ×4 (06:40→20:00)
[2018-04-23] MEDS: POLYETHYLENE GLYCOL 17 GM PACKET NG SCH ×2 (08:38→21:10)
[2018-04-23] MEDS: ALLOPURINOL 100 MG TABLET PO SCH (08:38)
[2018-04-23] MEDS: CHOLECALCIFEROL 1,000 UNIT TABLET PO SCH (08:38)
[2018-04-23] MEDS: FLUTICASONE/VILANTEROL 200-25MCG/INH INH SCH (08:44)
[2018-04-23] MEDS ORDERED: AMIODARONE 900 MG in DEXTROSE 5% 482 ML IV PRN (10:30)
[2018-04-23] MEDS ORDERED: AMIODARONE 150 MG in DEXTROSE 5% 100 ML IV ONE (10:30)
[2018-04-23] MEDS ORDERED: FILTER 0.22 MICRON FOR AMIODARONE IV PRN (11:00)
[2018-04-23] MEDS: VENETOCLAX 100 MG TAB PO SCH (11:59)
[2018-04-23] MEDS ORDERED: SENNOSIDES 8.8 MG/5 ML ORAL SOL PO PRN (22:30)
[2018-04-24] MEDS: LEVOTHYROXINE 100 MCG TABLET PO SCH (03:42)
[2018-04-24] MEDS: OXYcodone/APAP 5/325MG TABLET PO PRN ×3 (03:42→11:48)
[2018-04-24 04:17] LABS: MEAN CORPUSCULAR HEMOGLOBIN 32.9 pg (27.0-34.8); MEAN CORPUSCULAR HGB CONC 34.5 g/dL (32.4-35.8); MEAN CORPUSCULAR VOLUME 95.5 fL (80-100); RED BLOOD COUNT 2.01 x10^6/uL (3.82-5.3); RED CELL DISTRIBUTION WIDTH 22.7 % (9.6-15.2)
[2018-04-24 04:18] LABS: ALANINE AMINOTRANSFERASE 16 U/L (12-78); ALBUMIN 1.9 g/dL (3.4-5.0); ANION GAP 9 mmol/L (5-15); CALCIUM 8.6 mg/dL (8.5-10.1); CHLORIDE 93 mmol/L (98-107); CREATININE 1.67 mg/dL (0.55-1.02)
[2018-04-24 04:20] LABS: ALKALINE PHOSPHATASE 107 U/L (45-117); BILIRUBIN,TOTAL 0.5 mg/dL (0.2-1.0); TOTAL PROTEIN 5.6 g/dL (6.4-8.2)
[2018-04-24 05:00] VITALS: BP 110/42
[2018-04-24 05:18] LABS: MD YES; MEAN PLATELET VOLUME 8.8 fL (7.4-10.4)
[2018-04-24 05:24] LABS: LYMPH#(MANUAL) 2.96 x10^3/uL (1-3.4); LYMPHS% (MANUAL) 9 % (22-44); MONOS#(MANUAL) 3.29 x10^3/uL (0.3-2.7); MONOS% (MANUAL) 10 % (2-9); SEG#(MANUAL) 3.95 x10^3/uL (1.8-6.8); SEGS% (MANUAL) 12 % (42-75)
[2018-04-24 05:25] LABS: BLASTS % (MANUAL) 69 % (0-0); NRBC % (MANUAL) 1 % (0-1)
[2018-04-24 05:26] LABS: <PLATELET ESTIMATE> DECREASED; <PLT MORPHOLOGY> NORMAL PLT MORPH; ANISOCYTOSIS 1+; PLATELET COUNT 25 x10^3/uL (130-400); POLYCHROMASIA 1+
[2018-04-24] MEDS: ALBUTEROL/IPRATROPIUM 2.5MG/0.5MG, 3 ML NPPB SCH ×2 (07:00→08:54)
[2018-04-24] MEDS: FLUTICASONE/VILANTEROL 200-25MCG/INH INH SCH (09:00)
[2018-04-24] MEDS ORDERED: AMIODARONE 200 MG TABLET PO SCH (09:00)
[2018-04-24] MEDS: CHOLECALCIFEROL 1,000 UNIT TABLET PO SCH (09:10)
[2018-04-24] MEDS: ALLOPURINOL 100 MG TABLET PO SCH (09:10)
[2018-04-24] MEDS: POLYETHYLENE GLYCOL 17 GM PACKET NG SCH (09:10)
[2018-04-24] MEDS: LEVOFLOXACIN 750 MG TABLET PO SCH (09:10)
[2018-04-24 11:09] VITALS: BP 139/62
[2018-04-24 11:13] VITALS: BP 139/62
[2018-04-24 11:25] VITALS: BP 139/62
[2018-04-24] MEDS: VENETOCLAX 100 MG TAB PO SCH (12:00)
[2018-04-24] MEDS: METHYLNALTREXONE 12 MG/0.6 ML SQ SCH (12:30)
[2018-04-24] MEDS ORDERED: MORPHINE SULFATE 4 MG/ML, 1ML ONE (13:37)
[2018-04-24 13:48] VITALS: BP 121/52
[2018-04-24] MEDS ORDERED: MORPHINE SULFATE 4 MG/ML, 1ML IVPush ONE (14:00)
[2018-04-24 14:34] VITALS: BP 137/64
[2018-04-25] MEDS ORDERED: VENETOCLAX 100 MG PO SCH (12:00)
[2018-04-28] MEDS ORDERED: VENETOCLAX 100 MG TAB PO SCH (12:00)
[2018-04-29] MEDS ORDERED: VENETOCLAX 100 MG TAB PO SCH (12:00)
[2018-05-02] MEDS ORDERED: VENETOCLAX 100 MG PO SCH (12:00)
[2018-05-05] MEDS ORDERED: VENETOCLAX 100 MG TAB PO SCH (12:00)
[2018-05-06] MEDS ORDERED: VENETOCLAX 100 MG TAB PO SCH (12:00)
== END 2018-04-24 16:05 | disposition hospice, home (50) | DRG 834 ==
LOC: ED 12:10 → EDIP 14:23 → 5SO 15:41 → 3NW 04-05 17:21 → 5SO 04-13 06:32 → 3NW 04-15 14:03 → CCU 04-15 18:33
PROVIDERS: ADMIT Family Medicine; ATTEND Family Medicine
PROC: 30233N1 Transfusion of Nonautologous Red Blood Cells into Peripheral Vein, Percutaneous Approach (ICD-10-PCS; 2018-04-03)
PROC: 07DR3ZZ Extraction of Iliac Bone Marrow, Percutaneous Approach (ICD-10-PCS; principal; 2018-04-05)
PROC: 02HV33Z Insertion of Infusion Device into Superior Vena Cava, Percutaneous Approach (ICD-10-PCS; 2018-04-05)
PROC: B5181ZA Fluoroscopy of Superior Vena Cava using Low Osmolar Contrast, Guidance (ICD-10-PCS; 2018-04-05)
PROC: B548ZZA Ultrasonography of Superior Vena Cava, Guidance (ICD-10-PCS; 2018-04-05)
PROC: 0T9B70Z Drainage of Bladder with Drainage Device, Via Natural or Artificial Opening (ICD-10-PCS; 2018-04-15)
DX: C92.00 Acute myeloblastic leukemia, not having achieved remission (principal); A41.9 Sepsis, unspecified organism; I50.33 Acute on chronic diastolic (congestive) heart failure; E88.3 Tumor lysis syndrome; J18.9 Pneumonia, unspecified organism; J96.21 Acute and chronic respiratory failure with hypoxia; N17.0 Acute kidney failure with tubular necrosis; Z68.41 Body mass index [BMI] 40.0-44.9, adult; D61.818 Other pancytopenia; D68.9 Coagulation defect, unspecified; E46 Unspecified protein-calorie malnutrition; E87.1 Hypo-osmolality and hyponatremia; E87.3 Alkalosis; I13.0 Hypertensive heart and chronic kidney disease with heart failure and stage 1 through stage 4 chronic kidney disease, or unspecified chronic kidney disease; I47.1 Supraventricular tachycardia; I48.92 Unspecified atrial flutter; J44.0 Chronic obstructive pulmonary disease with (acute) lower respiratory infection; J44.1 Chronic obstructive pulmonary disease with (acute) exacerbation; N18.4 Chronic kidney disease, stage 4 (severe); N39.0 Urinary tract infection, site not specified; I50.9 Heart failure, unspecified; E66.01 Morbid (severe) obesity due to excess calories; D45 Polycythemia vera; D53.9 Nutritional anemia, unspecified; E03.9 Hypothyroidism, unspecified; E78.5 Hyperlipidemia, unspecified; E87.5 Hyperkalemia; E87.6 Hypokalemia; F17.200 Nicotine dependence, unspecified, uncomplicated; G89.29 Other chronic pain; M54.9 Dorsalgia, unspecified; I25.10 Atherosclerotic heart disease of native coronary artery without angina pectoris; I27.21 Secondary pulmonary arterial hypertension; I08.0 Rheumatic disorders of both mitral and aortic valves; I48.91 Unspecified atrial fibrillation; I87.8 Other specified disorders of veins; K59.00 Constipation, unspecified; M10.9 Gout, unspecified; R04.0 Epistaxis; R50.81 Fever presenting with conditions classified elsewhere; T45.1X5A Adverse effect of antineoplastic and immunosuppressive drugs, initial encounter; Y92.89 Other specified places as the place of occurrence of the external cause; Z66 Do not resuscitate; Z80.1 Family history of malignant neoplasm of trachea, bronchus and lung; Z82.49 Family history of ischemic heart disease and other diseases of the circulatory system; Z86.718 Personal history of other venous thrombosis and embolism; Z90.710 Acquired absence of both cervix and uterus; Z96.659 Presence of unspecified artificial knee joint; Z99.81 Dependence on supplemental oxygen; Y95 Nosocomial condition
CPT/HCPCS: 36415; 36569; 36600; 38222; 71045; 71046; 71250; 74018; 74176; 76705; 76770; 76937; 77001; 77012; 80048; 80053; 80074; 80162; 81001; 81003; 82272; 82274; 82436; 82542; 82570; 82607; 82746; 82803; 83010; 83605; 83615; 83735; 83880; 84100; 84132; 84133; 84300; 84443; 84484; 84550; 85025; 85045; 85049; 85379; 85384; 85610; 85730; 86022; 86644; 86645; 86663; 86664; 86665; 86704; 86706; 86708; 86803; 86850; 86880; 86900; 86923; 87040; 87077; 87081; 87086; 87186; 87340; 88184; 88185; 88237; 88264; 88280; 88311; 88313; 88314; 88341; 88342; 88377; 93005; 93306; 94640; 99156; 99157; 99285; G0378; J0692; J1644; J1650; J1940; J2020; J2250; J2405; J2783; J2997; J3010; J3370; J3480; J3490; J7613; J7620; J9025; Q0162; C1751; G0461; J0282; J1120; J1160; J1200; J1652; J2310; J2370; J7030; J7040; J7050; J7060; P9016; P9040; S0028